=== PATIENT | female | born 1965 | race Hispanic/Latino ===

== ENCOUNTER 2016-10-22 19:25 | Emergency (ER) | payer OTHER ==
[2016-10-22 20:10] VITALS: BP 149/99
[2016-10-22] MEDS ORDERED: TORADOL IM ONE (21:40)
--- NOTE | 2016-10-22 21:40 | Emergency Department Report ---
HPI - General Chief Complaint: Upper Respiratory Infection Time Seen by Provider: 10/22/16 21:31 - HPI HPI: atient here complaining of sore throat, cough and headache since Monday. She said that she's been having cough and stuffy nose about 1 week now but it's been getting worst over the last 3 days. Fever or chills. Denies any difficulty swallowing or drooling. Denies any nausea vomiting. Throat pain is 8 out of 10 and she says she took Motrin and it helped a little bit. Described pain as being sore. Denies any chest pain or shortness of breath. ED Past Medical Hx - Past Medical History Previous Medical History?: Yes Hx Hypertension: Yes Hx Diabetes: Yes Additional medical history: cdiff - Surgical History Past Surgical History?: Yes Additional Surgical History: hysterectomy - Family History Family history: no significant - Social History Smoking Status: Never Smoker Substance Use Type: None - Medications Home Medications: Home Medications Medication Instructions Recorded Confirmed Last Taken Type Carvedilol [Coreg] 25 mg PO DAILY 06/24/13 04/02/15 04/02/15 History Glimepiride [Amaryl] 8 mg PO QAM 06/24/13 04/02/15 04/02/15 History Sitagliptin Phos/Metformin HCl 1 each PO DAILY 06/24/13 04/02/15 04/02/15 History [Janumet 50-1,000 mg] Acetaminophen/Codeine 1 tab PO Q6H PRN #5 tab 04/01/15 04/02/15 04/02/15 Rx [Acetaminophen-Codeine #3 TAB] Azithromycin 500 mg PO DAILY #3 tablet 04/01/15 04/02/15 04/02/15 Rx Insulin Glargine [Lantus VIAL] 40 units SQ QHS 04/02/15 04/02/15 04/01/15 History Losartan/Hydrochlorothiazide 1 each PO DAILY 04/02/15 04/02/15 Unknown History [Hyzaar 50-12.5 TAB] Zolpidem Tartrate [Ambien] 10 mg PO QHS 04/02/15 04/02/15 Unknown History Acetaminophen/Codeine 1 tab PO Q6H PRN #12 tab 10/22/16 Unknown Rx [Acetaminophen-Codeine #3 TAB] Azithromycin [Zithromax] 250 mg PO QDAY #6 tablet 10/22/16 Unknown Rx Cetirizine HCl [ZyrTEC] 10 mg PO QDAY #30 capsule 10/22/16 Unknown Rx Fluticasone [Flonase] 1 spray NS QDAY #1 bottle 10/22/16 Unknown Rx predniSONE [Deltasone] 20 mg PO QDAY #3 tab 10/22/16 Unknown Rx ED Review of Systems ROS: Stated complaint: SOB,WHEEZING, ASTHMA Other details as noted in HPI Comment: All other systems reviewed and negative Constitutional: denies: chills, fever Eyes: denies: eye pain, eye discharge ENT: throat pain, congestion. denies: ear pain Respiratory: cough. denies: shortness of breath, SOB with exertion, SOB at rest , stridor, wheezing Cardiovascular: denies: chest pain, palpitations, edema, syncope Gastrointestinal: denies: abdominal pain, nausea, vomiting Musculoskeletal: denies: back pain, arthralgia Skin: denies: rash Neurological: denies: headache, weakness, numbness, paresthesias, confusion, abnormal gait, vertigo Physical Exam - Physical Exam Vital Signs: Vital Signs 10/22/16 10/22/16 20:08 21:38 Temperature 98.1 F Pulse Rate 113 H 92 H Respiratory 20 Rate Blood Pressure 149/99 O2 Sat by Pulse 99 100 Oximetry General: This is a 51-year-old female nourished well-developed in no acute distress. Physical Exam: Head: Normocephalic atraumatic Mouth: Moist, no pharyngeal exudate or erythema. Uvula is midline and oral airway is patent. No gingival enlargement or dental tenderness. No facial swelling. No peritonsillar abscesses. Neck: Supple, no C-spine tenderness, no tracheal deviation. Nontender to palpate. no adenopathy Ears: Bilateral TMs congested without erythema .bilateral EAC without any redness swelling or drainage Eyes: Bilateral pupils equal and reactive to light, bilateral EOM intact. Bilateral sclera and conjunctiva without injection. Normal accommodation Nose: Mucosa moist, positive congestion and erythema. Positive clear drainage. maxillary sinus tender to palpate. Lungs: clear to auscultate bilaterally no rhonchi wheezes or rales. Normal work of breathing extremity; No CCE. +2 pulses. No neurovascular compromise Cardiovascular: S1-S2, regular rate rhythm. No murmurs. Skin: clean Dry and intact no rash no lesions Psych: Normal mood and behavior ED Course Vital Signs 10/22/16 10/22/16 20:08 21:38 Temperature 98.1 F Pulse Rate 113 H 92 H Respiratory 20 Rate Blood Pressure 149/99 O2 Sat by Pulse 99 100 Oximetry - Reevaluation(s) Reevaluation #1: And stable throughout ED course. SHe received Toradol 60 mg IM pain 10/22/16 23:45 10/22/16 23:45 ED Medical Decision Making - Medical Decision Making ED course: I discussed the patient wishes sinus infection and I discussed treatment plan with her. I instructed her that she will need to follow-up with her primary care physician in 3-5 days for further evaluation. Patient was given Toradol 60 mg IM and emergency room and she was relief of sore throat. Strep test negative and for communicated with the patient. She was understanding of discharge instruction and discharged home with prescription for Zyrtec, Z-Matthew, Flonase and prednisone. Patient is a diabetic give her prednisone for 3 days. Instructed her that she needs to check her blood sugar more frequently well and prednisone. Critical care attestation.: If time is entered above; I have spent that time in minutes in the direct care of this critically ill patient, excluding procedure time. ED Disposition Clinical Impression: Sinusitis, acute, maxillary Qualifiers: Recurrence: not specified as recurrent Qualified Code(s): J01.00 - Acute maxillary sinusitis, unspecified Acute pharyngitis Qualifiers: Pharyngitis/tonsillitis etiology: unspecified etiology Qualified Code(s): J02.9 - Acute pharyngitis, unspecified Disposition: DISCHARGED TO HOME OR SELFCARE Is pt being admited?: No Does the pt Need Aspirin: No Condition: Stable Instructions: Sinusitis (ED), Pharyngitis (ED) Additional Instructions: Please flush your with saline nasal spray. Follow up with primary care physician in 3-5 days. Prednisone can cause increase in her blood sugar so please check your blood sugar while on prednisone. Prescriptions: Acetaminophen/Codeine [Acetaminophen-Codeine #3 TAB] 1 tab PO Q6H PRN #12 tab PRN Reason: Pain predniSONE [Deltasone] 20 mg PO QDAY #3 tab Fluticasone [Flonase] 1 spray NS QDAY #1 bottle Azithromycin [Zithromax] 250 mg PO QDAY #6 tablet Cetirizine HCl [ZyrTEC] 10 mg PO QDAY #30 capsule Referrals: PRIMARY CARE, [Primary Care Provider] - 3-5 Days Forms: Accompanied Note, Work/School Release Form(ED)
== END 2016-10-23 00:05 | disposition home or self-care (01) ==
LOC: ED 19:25
DX: J01.00 Acute maxillary sinusitis, unspecified (principal); J02.9 Acute pharyngitis, unspecified; I10 Essential (primary) hypertension; E11.9 Type 2 diabetes mellitus without complications; Z79.4 Long term (current) use of insulin
CPT/HCPCS: 87116; 87430; 96372; 99282; J1885

== ENCOUNTER 2018-11-08 05:03 | Inpatient (IN) | payer OTHER ==
[2018-11-08] MEDS ORDERED: NACL 0.9% 1000 ML 1,000 ML IV ONE (05:21)
[2018-11-08 05:46] LABS: Basophils # (Auto) 0.1 K/mm3 (0.0-0.1); Basophils % (Auto) 0.8 % (0.0-1.8); Eosinophils # (Auto) 0.4 K/mm3 (0.0-0.4); Eosinophils % (Auto) 4.9 % (0.0-4.3); Hemoglobin 13.3 gm/dl (10.1-14.3); Lymphocytes # (Auto) 2.3 K/mm3 (1.2-5.4); Lymphocytes % (Auto) 29.4 % (13.4-35.0); Mean Corpuscular HGB Conc 34 % (30-34); Mean Corpuscular Volume 90 fl (79-97); Monocytes # (Auto) 0.4 K/mm3 (0.0-0.8); Monocytes % (Auto) 4.5 % (0.0-7.3); Platelet Count 273 K/mm3 (140-440); Red Blood Count 4.31 M/mm3 (3.65-5.03); Red Cell Distribution Width 13.1 % (13.2-15.2)
[2018-11-08 06:03] LABS: BUN/Creatinine Ratio 10; Blood Urea Nitrogen 9 mg/dL (7-17); Calcium 9.1 mg/dL (8.4-10.2); Hemolysis Index 26
[2018-11-08] MEDS ORDERED: D50W (25GM) Syringe IV PRN (06:29)
--- NOTE | 2018-11-08 06:30 | Emergency Department Report ---
ED Abdominal Pain HPI - General Chief Complaint: Hyperglycemia Stated Complaint: HIGH BLOOD SUGAR Time Seen by Provider: 11/08/18 06:12 Source: patient, EMS Mode of arrival: Stretcher Limitations: No Limitations - History of Present Illness Initial Comments: Patient is a 53-year-old female that presents emergency room with complaints of left lower abdominal pain and elevated blood sugar. Patient states her abdominal pain started about 3 days ago and is worsening. Patient states her abdominal pain is about a 5-6 out of 10. Patient states it is not radiating patient states the pain is a stabbing sensation. Patient states the pain is worse with palpation over. She states the pain is better with rest. Patient states that her blood sugars but however since changing her insulin. Patient denies vomiting. Patient complains of nausea. Patient denies fever and chills. Patient denies dizziness. Patient denies blurry vision. Patient denies chest pain shortness of breath. MD Complaint: abdominal pain -: Sudden Location: LLQ Radiation: none Migration to: no migration Severity scale (0 -10): 5 Quality: stabbing Consistency: constant Improves With: rest Worsens With: movement Associated Symptoms: nausea. denies: vomiting, diarrhea, fever, chills, constipation, dysuria, hematemesis, hematochezia, melena, hematuria, anorexia, syncope - Related Data LMP (females 10-50): unknown Home Medications Medication Instructions Recorded Confirmed Last Taken Carvedilol [Coreg] 25 mg PO DAILY 06/24/13 11/08/18 04/02/15 Glimepiride [Amaryl] 8 mg PO QAM 06/24/13 11/08/18 04/02/15 Sitagliptin Phos/Metformin HCl 1 each PO DAILY 06/24/13 11/08/18 04/02/15 [Janumet 50-1,000 mg] Insulin Glargine [Lantus VIAL] 40 units SQ QHS 04/02/15 11/08/18 04/01/15 Losartan/Hydrochlorothiazide 1 each PO DAILY 04/02/15 11/08/18 Unknown [Hyzaar 50-12.5 TAB] Zolpidem Tartrate [Ambien] 10 mg PO QHS 04/02/15 11/08/18 Unknown Previous Rx's Medication Instructions Recorded Last Taken Type Acetaminophen/Codeine [Tylenol 1 tab PO Q6H PRN #5 tab 04/01/15 04/02/15 Rx /Codeine # 3 tab] Allergies Allergy/AdvReac Type Severity Reaction Status Date / Time Penicillins Allergy Rash Verified 04/02/15 11:54 ED Review of Systems ROS: Stated complaint: HIGH BLOOD SUGAR Other details as noted in HPI Constitutional: denies: chills, fever Eyes: denies: eye pain, eye discharge, vision change ENT: denies: ear pain, throat pain Respiratory: denies: cough, shortness of breath, wheezing Cardiovascular: denies: chest pain, palpitations Endocrine: no symptoms reported Gastrointestinal: abdominal pain, nausea. denies: vomiting, diarrhea, constipation, hematemesis, melena, hematochezia Genitourinary: denies: urgency, dysuria, discharge Musculoskeletal: denies: back pain, joint swelling, arthralgia Skin: denies: rash, lesions Neurological: denies: headache, weakness, paresthesias Psychiatric: denies: anxiety, depression Hematological/Lymphatic: denies: easy bleeding, easy bruising ED Past Medical Hx - Past Medical History Previous Medical History?: Yes Hx Hypertension: Yes Hx Diabetes: Yes Additional medical history: cdiff - Surgical History Past Surgical History?: Yes Additional Surgical History: hysterectomy - Family History Family history: no significant - Social History Smoking Status: Never Smoker Substance Use Type: None - Medications Home Medications: Home Medications Medication Instructions Recorded Confirmed Last Taken Type Carvedilol [Coreg] 25 mg PO DAILY 06/24/13 11/08/18 04/02/15 History Glimepiride [Amaryl] 8 mg PO QAM 06/24/13 11/08/18 04/02/15 History Sitagliptin Phos/Metformin HCl 1 each PO DAILY 06/24/13 11/08/18 04/02/15 History [Janumet 50-1,000 mg] Acetaminophen/Codeine [Tylenol 1 tab PO Q6H PRN #5 tab 04/01/15 11/08/18 04/02/15 Rx /Codeine # 3 tab] Insulin Glargine [Lantus VIAL] 40 units SQ QHS 04/02/15 11/08/18 04/01/15 History Losartan/Hydrochlorothiazide 1 each PO DAILY 04/02/15 11/08/18 Unknown History [Hyzaar 50-12.5 TAB] Zolpidem Tartrate [Ambien] 10 mg PO QHS 04/02/15 11/08/18 Unknown History ED Physical Exam - General Limitations: No Limitations General appearance: alert, in no apparent distress - Head Head exam: Present: atraumatic, normocephalic - Eye Eye exam: Present: normal appearance - ENT ENT exam: Present: mucous membranes dry - Neck Neck exam: Present: normal inspection - Respiratory Respiratory exam: Present: normal lung sounds bilaterally. Absent: respiratory distress - Cardiovascular Cardiovascular Exam: Present: regular rate, normal rhythm. Absent: systolic murmur, diastolic murmur, rubs, gallop - GI/Abdominal GI/Abdominal exam: Present: soft, normal bowel sounds - Extremities Exam Extremities exam: Present: normal inspection - Back Exam Back exam: Present: normal inspection - Neurological Exam Neurological exam: Present: alert, oriented X3 - Psychiatric Psychiatric exam: Present: normal affect, normal mood - Skin Skin exam: Present: warm, dry, intact, normal color. Absent: rash ED Course Vital Signs 11/08/18 11/08/18 11/08/18 05:07 05:15 05:30 Temperature 98.2 F Pulse Rate 82 91 H 87 Respiratory 18 14 20 Rate Blood Pressure 126/85 118/94 131/85 O2 Sat by Pulse 99 98 98 Oximetry 11/08/18 11/08/18 11/08/18 05:45 06:00 06:15 Temperature Pulse Rate 74 83 85 Respiratory 12 24 20 Rate Blood Pressure 161/104 154/93 155/99 O2 Sat by Pulse 99 99 100 Oximetry 11/08/18 11/08/18 11/08/18 06:30 06:45 07:11 Temperature Pulse Rate 85 81 Respiratory 20 13 Rate Blood Pressure 166/94 166/94 166/94 O2 Sat by Pulse 98 98 Oximetry 11/08/18 11/08/18 11/08/18 07:21 07:31 07:41 Temperature Pulse Rate Respiratory Rate Blood Pressure 166/94 166/94 166/94 O2 Sat by Pulse 98 98 99 Oximetry 11/08/18 11/08/18 11/08/18 07:51 08:01 08:11 Temperature Pulse Rate Respiratory Rate Blood Pressure 166/94 166/94 166/94 O2 Sat by Pulse 99 98 98 Oximetry 11/08/18 11/08/18 11/08/18 08:21 08:31 08:41 Temperature Pulse Rate Respiratory Rate Blood Pressure 166/94 166/94 166/94 O2 Sat by Pulse 98 99 100 Oximetry 11/08/18 11/08/18 11/08/18 08:51 09:01 09:11 Temperature Pulse Rate Respiratory Rate Blood Pressure 166/94 166/94 166/94 O2 Sat by Pulse 99 100 98 Oximetry 11/08/18 11/08/18 11/08/18 09:21 09:31 09:41 Temperature Pulse Rate 99 H 113 H Respiratory 18 11 L Rate Blood Pressure 166/94 166/94 166/94 O2 Sat by Pulse 98 100 Oximetry 11/08/18 11/08/18 11/08/18 09:51 10:01 10:11 Temperature Pulse Rate 105 H 119 H 110 H Respiratory 17 14 19 Rate Blood Pressure 166/94 166/94 166/94 O2 Sat by Pulse 99 99 98 Oximetry - Reevaluation(s) Reevaluation #1: Lab review. Discussed all results with patient. Initial evaluation done. Patient appears to be in DKA. She was started on insulin drip. We'll do a CT scan of the abdomen. 11/08/18 06:12 Reevaluation #2: Skull and all results with patient. Patient's voiced understanding of results. Patient admitted to the ICU. Hospitalist to admit patient. 11/08/18 08:37 - Consultations Consultation #1: Hospitalist consultation for admission. Hospitalist to admit patient. Bridge orders placed 11/08/18 08:37 Consultation #2: Transport Technician consult placed 11/08/18 08:37 ED Medical Decision Making - Lab Data Result diagrams: 11/08/18 05:35 11/08/18 07:19 - Radiology Data Radiology results: report reviewed FINAL REPORT EXAM: CT ABDOMEN PELVIS W CON HISTORY: abd pain TECHNIQUE: Routine axial imaging was obtained of the abdomen and pelvis following the intravenous injection of 100 cc of Omnipaque 300. Delayed imaging was obtained through the kidneys ureters and bladder. Sagittal and coronal reconstructions were reviewed. FINDINGS: The lung bases are negative for infiltrates or effusions. The liver, gallbladder, biliary tree, pancreas, spleen, and adrenal glands appear normal. The kidneys enhance normally. There is no evidence of hydronephrosis. The abdominal aorta is normal in caliber. The portal vein enhances normally. There is a moderate amount retained feces noted in the colon. There is a large amount in the cecum. There is mild distention of multiple ileal loops without wall thickening. There is several mildly distended ileal loops. The appendix appears normal. There is no evidence of free fluid or adenopathy. In the pelvis the uterus has been removed. The bladder appears no rmal. The skeletal structures do not show any acute changes. IMPRESSION: Nonspecific mildly distended fluid-filled loops of ileum with minimal distension of several jejunal loops. The findings may be on the basis of a viral enteritis/nonspecific ileus. Hysterectomy. Normal appendix. Moderate amount retained feces in the colon. - Medical Decision Making She is 53-year-old female that presents to emergency room with complaints of left lower quadrant abdominal pain. Patient found to have gastroenteritis and DKA. Patient admitted to the hospitalist service. Patient given insulin drip. Patient's blood glucose responded well patient started on D5 half-normal saline with [address] showed gastroenteritis. - Differential Diagnosis abdominal pain. Gastritis. Diverticulitis. Critical Care Time: Yes Critical care attestation.: If time is entered above; I have spent that time in minutes in the direct care of this critically ill patient, excluding procedure time. Critical Care Time: 45 minutes ED Disposition Clinical Impression: High blood sugar, Metabolic acidosis, Gastroenteritis Abdominal pain Qualifiers: Abdominal location: left lower quadrant Qualified Code(s): R10.32 - Left lower quadrant pain DKA (diabetic ketoacidoses) Qualifiers: Diabetes mellitus type: type 2 Diabetes mellitus complication detail: without coma Qualified Code(s): E11.10 - Type 2 diabetes mellitus with ketoacidosis without coma Disposition: 09 OP ADMIT IP TO THIS HOSP Is pt being admited?: Yes Does the pt Need Aspirin: No Condition: Critical Time of Disposition: 08:38
[2018-11-08 06:45] LABS: Bilirubin,Urine NEG (Negative); Blood,Urine NEG (Negative); Color,Urine Straw (Yellow); Mucus,Urine FEW /HPF; Protein,Urine <15 mg/dL mg/dL (Negative); Urobilinogen,Urine < 2.0 mg/dL (<2.0)
[2018-11-08] MEDS ORDERED: DILAUDID ONE (06:50)
[2018-11-08] MEDS ORDERED: DILAUDID IV ONE (06:56)
[2018-11-08] MEDS ORDERED: HumuLIN R 100 UNITS in NACL 0.9% 99 ML IV SCH (07:00)
--- NOTE | 2018-11-08 07:34 | Cat Scan Report ---
FINAL REPORT EXAM: CT ABDOMEN PELVIS W CON HISTORY: abd pain TECHNIQUE: Routine axial imaging was obtained of the abdomen and pelvis following the intravenous in jection of 100 cc of Omnipaque 300. Delayed imaging was obtained through the kidneys ureters and blad ross. Sagittal and coronal reconstructions were reviewed. FINDINGS: The lung bases are negative for infiltrates or effusions. The liver, gallbladder, biliary tree, pancreas, spleen, and adrenal glands appear normal. The kidneys enhance normally. There is no evidence of hydronephrosis. The abdominal aorta is normal in caliber. The portal vein enhances normally. There is a moderate amount retained feces noted in the colon. There is a large amount in the cecum. T here is mild distention of multiple ileal loops without wall thickening. There is several mildly dist ended ileal loops. The appendix appears normal. There is no evidence of free fluid or adenopathy. In the pelvis the uterus has been removed. The bladder appears normal. The skeletal structures do not sh ow any acute changes. IMPRESSION: Nonspecific mildly distended fluid-filled loops of ileum with minimal distension of several jejunal l oops. The findings may be on the basis of a viral enteritis/nonspecific ileus. Hysterectomy. Normal appendix. Moderate amount retained feces in the colon.
[2018-11-08 07:49] LABS: BUN/Creatinine Ratio 10; Blood Urea Nitrogen 8 mg/dL (7-17); Calcium 8.8 mg/dL (8.4-10.2); Hemolysis Index 9
[2018-11-08] MEDS ORDERED: BENADRYL IV ONE (08:12)
[2018-11-08] MEDS ORDERED: D5W/0.45% NACL/KCL 20 MEQ 20 MEQ/1,000 ML BAG IV SCH (09:00)
--- NOTE | 2018-11-08 09:18 | History and Physical Report ---
History of Present Illness Date of examination: 11/08/18 Date of admission: 11/08/18 Chief complaint: Abdominal pain, nausea, vomiting, elevated blood glucose History of present illness: Patient is 53-year-old with diabetes. She presents with abdominal pain and nausea. Abdominal pain is 6 out of 10,mid abdomen non-radiating. Pain is a sharp pain. She also complains of nausea with no vomiting. She was evaluated in Emergency departments. labs drawn in Emergency department showed a glucose of 432. She was diagnosed with uncontrolled diabetes mellitus type 2 with hyperglycemia, and was started on Insulin drip. Will admit for further management. Past History Past Medical History: diabetes Past Surgical History: hysterectomy Social history: full code. denies: smoking, alcohol abuse Family history: no significant family history Medications and Allergies Allergies Allergy/AdvReac Type Severity Reaction Status Date / Time Penicillins Allergy Rash Verified 04/02/15 11:54 Home Medications Medication Instructions Recorded Confirmed Last Taken Type Carvedilol [Coreg] 25 mg PO DAILY 06/24/13 11/08/18 04/02/15 History Glimepiride [Amaryl] 8 mg PO QAM 06/24/13 11/08/18 04/02/15 History Sitagliptin Phos/Metformin HCl 1 each PO DAILY 06/24/13 11/08/18 04/02/15 History [Janumet 50-1,000 mg] Acetaminophen/Codeine [Tylenol 1 tab PO Q6H PRN #5 tab 04/01/15 11/08/18 04/02/15 Rx /Codeine # 3 tab] Losartan/Hydrochlorothiazide 1 each PO DAILY 04/02/15 11/08/18 Unknown History [Hyzaar 50-12.5 TAB] Famotidine [Pepcid] 20 mg PO BID 5 Days tablet 11/09/18 Unknown Rx Insulin Glargine,Hum.rec.anlog 45 units SQ QHS #1 vial 11/09/18 Unknown Rx [Lantus] diphenhydrAMINE [Benadryl CAP] 25 mg PO Q8HR #10 capsule 11/09/18 Unknown Rx predniSONE [Deltasone] 20 mg PO QDAY 5 Days tab 11/09/18 Unknown Rx Active Meds: Active Medications Dextrose (D50w (25gm) Syringe) 0 ml IV PRN PRN PRN Reason: Hypoglycemia Insulin Human Regular 100 (units/ Sodium Chloride) 100 mls @ 1 mls/hr IV TITR SANYA; Protocol Last Admin: 11/08/18 08:18 Dose: 5 units/hr, 5 mls/hr Documented by: Potassium Chloride/Dextrose/Sod Cl (D5w/0.45% Nacl/Kcl 20 Meq) 20 meq in 1,000 mls @ 125 mls/hr IV DIRECT SANYA Last Admin: 11/08/18 08:43 Dose: 125 mls/hr Documented by: Review of Systems All systems: negative (no fever, no cough, no urinary symptoms. All other systems reviewed and are negative.) Exam - Physical Exam Narrative exam: GEN: Not in acute distress, lying in bed HEENT: Normocephalic, atraumatic, Neck: supple, No JVD Lungs: Clear to auscultation bilaterally, no wheeze Heart:S1 and S2 regular, no murmurs, rubs or gallop, Abd:soft, non tender, non distended, normal bowel sounds Ext: No edema, no clubbing or cyanosis Neuro: Awake,alert, oriented x 3, No focal signs - Constitutional Vitals: Temp Pulse Resp BP Pulse Ox 98.2 F 81 13 166/94 98 11/08/18 05:07 11/08/18 06:45 11/08/18 06:45 11/08/18 06:45 11/08/18 06:30 Results - Labs CBC & Chem 7: 11/08/18 05:35 11/09/18 06:42 Labs: Abnormal lab results 11/08/18 11/08/18 11/08/18 Range/Units 05:11 05:35 05:35 RDW 13.1 L (13.2-15.2) % Eos % (Auto) 4.9 H (0.0-4.3) % VBG pH (7.320-7.420) Sodium 136 L (137-145) mmol/L Chloride 97.9 L (98-107) mmol/L Carbon Dioxide 21 L (22-30) mmol/L Glucose 433 H (65-100) mg/dL POC Glucose 356 H (70-105) Hemoglobin A1c (4-6) % 11/08/18 11/08/18 11/08/18 Range/Units 05:35 05:35 06:27 RDW (13.2-15.2) % Eos % (Auto) (0.0-4.3) % VBG pH 7.205 L (7.320-7.420) Sodium (137-145) mmol/L Chloride (98-107) mmol/L Carbon Dioxide (22-30) mmol/L Glucose (65-100) mg/dL POC Glucose 322 H (70-105) Hemoglobin A1c 8.3 H (4-6) % 11/08/18 11/08/18 Range/Units 07:19 07:59 RDW (13.2-15.2) % Eos % (Auto) (0.0-4.3) % VBG pH (7.320-7.420) Sodium 135 L (137-145) mmol/L Chloride (98-107) mmol/L Carbon Dioxide 21 L (22-30) mmol/L Glucose 312 H (65-100) mg/dL POC Glucose 265 H (70-105) Hemoglobin A1c (4-6) % Assessment and Plan Diabetes mellitus type 2, uncontrollled, with hyperglycemia Admit Stop Insulin drip Give humalog qac Continue lantus 40 units qhs Hyponatremia Start iv fluids Full code status
[2018-11-08] MEDS ORDERED: ZOFRAN IV PRN (09:19)
[2018-11-08] MEDS ORDERED: SODIUM CHLORIDE FLUSH SYRINGE 10 ML IV PRN (09:19)
[2018-11-08] MEDS ORDERED: NACL 0.9% 1000 ML 1,000 ML IV SCH (10:00)
[2018-11-08] MEDS ORDERED: SITAGLIPTIN PHOS PO SCH (10:15)
[2018-11-08] MEDS ORDERED: METFORMIN HCL PO SCH (10:15)
[2018-11-08] MEDS ORDERED: TYLENOL PO PRN (10:30)
[2018-11-08] MEDS: COREG PO SCH (10:47)
[2018-11-08] MEDS: SODIUM CHLORIDE FLUSH SYRINGE 10 ML IV SCH ×2 (10:48→22:12)
[2018-11-08] MEDS ORDERED: LOSARTAN PO SCH (11:00)
[2018-11-08] MEDS ORDERED: HYDROCHLOROTHIAZIDE PO SCH (11:00)
[2018-11-08] MEDS: MORPHINE IV PRN ×4 (11:06→22:11)
[2018-11-08] MEDS: HCTZ PO SCH (12:00)
[2018-11-08] MEDS: AMARYL PO SCH (12:00)
[2018-11-08] MEDS ORDERED: COZAAR PO SCH (12:00)
[2018-11-08] MEDS: HumaLOG SUB-Q SCH ×2 (12:43→16:59)
[2018-11-08] MEDS: ZOFRAN IV PRN (16:10)
[2018-11-08 17:46] LABS: BUN/Creatinine Ratio 6; Blood Urea Nitrogen 5 mg/dL (7-17); Calcium 9.2 mg/dL (8.4-10.2); Hemolysis Index 19
[2018-11-08] MEDS ORDERED: AMBIEN PO SCH (22:00)
[2018-11-08] MEDS ORDERED: LANTUS SUB-Q SCH (22:00)
[2018-11-08 23:23] LABS: BUN/Creatinine Ratio 6; Blood Urea Nitrogen 5 mg/dL (7-17); Calcium 9.3 mg/dL (8.4-10.2); Hemolysis Index 16
[2018-11-08] MEDS ORDERED: APRESOLINE IV PRN (23:40)
[2018-11-09] MEDS: ZOFRAN IV PRN (00:49)
[2018-11-09] MEDS: MORPHINE IV PRN ×3 (04:04→13:19)
[2018-11-09 07:35] LABS: Calcium 8.4 mg/dL (8.4-10.2)
[2018-11-09] MEDS: AMARYL PO SCH (08:55)
[2018-11-09] MEDS: HumaLOG SUB-Q SCH ×2 (08:59→11:30)
[2018-11-09] MEDS: COREG PO SCH (10:00)
[2018-11-09] MEDS ORDERED: TRADJENTA PO SCH (10:00)
[2018-11-09] MEDS ORDERED: GLUCOPHAGE PO SCH (10:00)
[2018-11-09] MEDS: SODIUM CHLORIDE FLUSH SYRINGE 10 ML IV SCH (10:09)
[2018-11-09] MEDS: HCTZ PO SCH (10:10)
[2018-11-09] MEDS ORDERED: BENADRYL IV ONE (11:00)
[2018-11-09] MEDS ORDERED: PEPCID IV SCH (12:00)
[2018-11-09] MEDS ORDERED: SOLU-Medrol IV SCH (12:00)
--- NOTE | 2018-11-09 12:40 | Discharge Summary ---
Providers - Providers Date of Admission: 11/08/18 08:34 Date of discharge: 11/09/18 Attending physician: KASEY VEGA Primary care physician: JOHN GREEN Hospitalization Condition: Fair Hospital course: Patient is 53-year-old with diabetes. She presented with abdominal pain and nausea. She was evaluated in Emergency departments. labs drawn in Emergency department showed a glucose of 432. She was diagnosed with uncontrolled diabetes mellitus type 2 with hyperglycemia, and was started on Insulin drip. Blood glucose improved so her insulin drip was discontinued in the emergency room and she was admitted. She was put on Lantus and Humalog. By the following day her glucose was normalized so she was discharged home with a glucose of 108. Disposition: TO HOME OR SELFCARE - Discharge Diagnoses (1) Diabetes mellitus type 2 in nonobese Status: Acute (2) Hyperglycemia Status: Acute (3) Hyponatremia Status: Acute Core Measure Documentation - Palliative Care Palliative Care/ Comfort Measures: Not Applicable - Core Measures Any of the following diagnoses?: none Exam - Constitutional Vitals: Temp Pulse Resp BP Pulse Ox 98.0 F 82 16 103/66 98 11/09/18 05:24 11/09/18 05:24 11/09/18 05:24 11/09/18 10:02 11/09/18 05:24 Plan Activity: no restrictions Diet: low fat, low cholesterol, diabetic Additional Instructions: 1.Follow up with PCP in 1 week. 2.Resume Janumet on 11/11/18 because of recent contrast. Follow up with: JOHN GREEN MD [Primary Care Provider] - 7 Days Forms: Work/School Release Form Prescriptions: diphenhydrAMINE [Benadryl CAP] 25 mg PO Q8HR #10 capsule Famotidine [Pepcid] 20 mg PO BID 5 Days tablet Insulin Glargine,Hum.rec.anlog [Lantus] 45 units SQ QHS #1 vial predniSONE [Deltasone] 20 mg PO QDAY 5 Days tab
[2018-11-11 11:29] VITALS: BP 101/65
== END 2018-11-09 16:54 | disposition home or self-care (01) | DRG 391 ==
LOC: ED 05:03 → 3A 08:34
PROVIDERS: ADMIT Internal Medicine; ATTEND Internal Medicine
DX: K52.9 Noninfective gastroenteritis and colitis, unspecified (principal); E11.10 Type 2 diabetes mellitus with ketoacidosis without coma; I10 Essential (primary) hypertension; Z79.4 Long term (current) use of insulin; Z88.0 Allergy status to penicillin; Z79.899 Other long term (current) drug therapy; Z79.810 Long term (current) use of selective estrogen receptor modulators (SERMs)
CPT/HCPCS: 36415; 74177; 80048; 81001; 82805; 82962; 83036; 83735; 84100; 85025; G0378; J0360; J1170; J1200; J1815; J2270; J2405; J2930; J7030; Q9967

== ENCOUNTER 2019-09-20 21:15 | Emergency (ER) | payer SELFPAY ==
[2019-09-20 23:36] LABS: Basophils # (Auto) 0.1 K/mm3 (0.0-0.1); Basophils % (Auto) 0.8 % (0.0-1.8); Eosinophils # (Auto) 0.5 K/mm3 (0.0-0.4); Eosinophils % (Auto) 5.2 % (0.0-4.3); Hematocrit 38.5 % (30.3-42.9); Hemoglobin 13.1 gm/dl (10.1-14.3); Lymphocytes # (Auto) 1.5 K/mm3 (1.2-5.4); Lymphocytes % (Auto) 16.3 % (13.4-35.0); Mean Corpuscular HGB Conc 34 % (30-34); Mean Corpuscular Volume 91 fl (79-97); Monocytes # (Auto) 0.4 K/mm3 (0.0-0.8); Monocytes % (Auto) 3.9 % (0.0-7.3); Platelet Count 214 K/mm3 (140-440); Red Blood Count 4.25 M/mm3 (3.65-5.03); Red Cell Distribution Width 14.3 % (13.2-15.2)
[2019-09-20 23:59] LABS: Bacteria,Urine 1+ /HPF (Negative); Bilirubin,Urine NEG (Negative); Blood,Urine NEG (Negative); Color,Urine Straw (Yellow); Protein,Urine <15 mg/dL mg/dL (Negative); Urobilinogen,Urine < 2.0 mg/dL (<2.0)
[2019-09-21 00:01] LABS: BUN/Creatinine Ratio 10; Blood Urea Nitrogen 8 mg/dL (7-17); Calcium 10.7 mg/dL (8.4-10.2); Hemolysis Index 10
[2019-09-21] MEDS ORDERED: SODIUM CHLORIDE 0.9% 1000 ML 1,000 ML IV ONE ×2 (00:31→01:19)
[2019-09-21] MEDS ORDERED: INSULIN REGULAR, HUMAN 100 UNITS/1 ML IV ONE ×2 (00:31→02:55)
[2019-09-21 02:13] LABS: Alanine Aminotransferase 22 units/L (7-56); Albumin 3.8 g/dL (3.9-5)
[2019-09-21 02:15] LABS: Bilirubin,Direct < 0.2 mg/dL (0-0.2)
--- NOTE | 2019-09-21 02:15 | Cat Scan Report ---
CT of the abdomen and pelvis without contrast INDICATION: Nausea and vomiting COMPARISON: 11/08/2018 FINDINGS: Small right lung nodules are unchanged. There is calcified right lower lobe granuloma as we ll. Liver, spleen, pancreas, adrenal glands and left kidney are all grossly normal. Small stones are seen in the right lower pole without obstruction. Gallbladder is contracted. No biliary tree dilation . No fluid or adenopathy upper abdomen. There are trace pleural effusions. CT of the pelvis shows evidence of hysterectomy. There is large amount of stool in rectum and sigmoid colon. Appendix is seen and is normal. No pelvic fluid or adenopathy. No diverticulosis or diverticu litis. No bowel obstruction is seen. No ureteral stones are seen. No stone fragments seen in the blad ross. IMPRESSION: No acute abnormality. Automated exposure control was utilized to diminish radiation dose. Signer Name: Jaun De Leon MD Signed: 09/21/2019 2:10 AM Workstation Name: [id number]
[2019-09-21] MEDS ORDERED: ACETAMINOPHEN 325 MG TAB PO ONE (02:53)
[2019-09-21] MEDS ORDERED: SODIUM CHLORIDE 0.9% 1000 ML 500 ML IV ONE (02:54)
--- NOTE | 2019-09-21 04:32 | Emergency Department Report ---
ED Abdominal Pain HPI - General Chief Complaint: Hyperglycemia Stated Complaint: HIGH GLUCOSE; N/V Time Seen by Provider: 09/21/19 00:30 Source: patient Mode of arrival: Ambulatory Limitations: No Limitations - History of Present Illness MD Complaint: abdominal pain -: Gradual, days(s) (1) Location: RLQ Radiation: none Migration to: no migration Severity scale (0 -10): 1 Quality: aching Consistency: intermittent Improves With: nothing Worsens With: nothing Associated Symptoms: other (Hyperglycemia). denies: nausea, vomiting, diarrhea, chills, constipation, dysuria, hematemesis, hematochezia, melena, hematuria, anorexia, syncope - Related Data Home Medications Medication Instructions Recorded Confirmed Last Taken Glimepiride [Amaryl] 8 mg PO QAM 06/24/13 11/08/18 04/02/15 Sitagliptin Phos/Metformin HCl 1 each PO DAILY 06/24/13 11/08/18 04/02/15 [Janumet 50-1,000 mg] carvediloL [Coreg] 25 mg PO DAILY 06/24/13 11/08/18 04/02/15 Losartan/Hydrochlorothiazide 1 each PO DAILY 04/02/15 11/08/18 Unknown [Hyzaar 50-12.5 TAB] Previous Rx's Medication Instructions Recorded Last Taken Type Acetaminophen/Codeine [Tylenol 1 tab PO Q6H PRN #5 tab 04/01/15 04/02/15 Rx /Codeine # 3 tab] Famotidine [Pepcid] 20 mg PO BID 5 Days tablet 11/09/18 Unknown Rx Insulin Glargine,Hum.rec.anlog 45 units SQ QHS #1 vial 11/09/18 Unknown Rx [Lantus] diphenhydrAMINE [Benadryl CAP] 25 mg PO Q8HR #10 capsule 11/09/18 Unknown Rx predniSONE [Deltasone] 20 mg PO QDAY 5 Days tab 11/09/18 Unknown Rx Dicyclomine [Bentyl] 10 mg PO QID PRN #12 capsule 09/21/19 Unknown Rx Allergies Allergy/AdvReac Type Severity Reaction Status Date / Time Penicillins Allergy Rash Verified 04/02/15 11:54 ED Review of Systems ROS: Stated complaint: HIGH GLUCOSE; N/V Other details as noted in HPI Other: GENERAL: No weight change, fatigue, fever, chills, or night sweats SKIN: No changes in skin or hair, no itching, no rashes, no jaundice HEAD: No trauma EYES: No blurriness, tearing, itching, acute visual loss, conjunctival discoloration, or scleral icterus EARS: No hearing loss, tinnitus, vertigo, or earache NOSE: No rhinorrhea, stuffiness, sneezing, itching, or epistaxis MOUTH: No bleeding gums, hoarseness, sore throat, or swelling CARDIAC: No new murmur, chest pain, palpitations, dyspnea on exertion, orthopne a, PND, or edema RESPIRATORY: No shortness of breath, wheeze, cough, sputum production, hemoptysis GI: Abdominal pain. No nausea, vomiting, dysphagia, diarrhea, constipation, hematemesis, melena, hematochezia URINARY: No frequency, urgency, polyuria, dysuria, hematuria, or incontinence MUSCULOSKELETAL: No muscle weakness, joint stiffness, decrease in range of motion, redness, swelling NEUROLOGIC: No headache, syncope, loss of sensation, numbness, tingling, tremors, weakness, paralysis, seizures HEMATOLOGIC: No anemia, easy bruising, bleeding, petechiae, or purpura ENDOCRINE: No hot or cold intolerance, sweating, polyuria, polydipsia or, polyphagia no thyroid problems PSYCHIATRIC: No change in mood, no anxiety, no depression ED Past Medical Hx - Past Medical History Previous Medical History?: Yes Hx Hypertension: Yes Hx Diabetes: Yes Additional medical history: cdiff - Surgical History Past Surgical History?: Yes Additional Surgical History: hysterectomy - Social History Smoking Status: Never Smoker Substance Use Type: None - Medications Home Medications: Home Medications Medication Instructions Recorded Confirmed Last Taken Type Glimepiride [Amaryl] 8 mg PO QAM 06/24/13 11/08/18 04/02/15 History Sitagliptin Phos/Metformin HCl 1 each PO DAILY 06/24/13 11/08/18 04/02/15 History [Janumet 50-1,000 mg] carvediloL [Coreg] 25 mg PO DAILY 06/24/13 11/08/18 04/02/15 History Acetaminophen/Codeine [Tylenol 1 tab PO Q6H PRN #5 tab 04/01/15 11/08/1803/10 Rx /Codeine # 3 tab] Losartan/Hydrochlorothiazide 1 each PO DAILY 04/02/15 11/08/18 Unknown History [Hyzaar 50-12.5 TAB] Famotidine [Pepcid] 20 mg PO BID 5 Days tablet 11/09/18 Unknown Rx Insulin Glargine,Hum.rec.anlog 45 units SQ QHS #1 vial 11/09/18 Unknown Rx [Lantus] diphenhydrAMINE [Benadryl CAP] 25 mg PO Q8HR #10 capsule 11/09/18 Unknown Rx predniSONE [Deltasone] 20 mg PO QDAY 5 Days tab 11/09/18 Unknown Rx Dicyclomine [Bentyl] 10 mg PO QID PRN #12 capsule 09/21/19 Unknown Rx ED Physical Exam - General Limitations: No Limitations - Other Other exam information: GENERAL: Patient in no acute distress HEAD: Normocephalic, atraumatic EYES: PERRLA, EOM intact, no scleral icterus, no conjunctival hemorrhage, visual chamberlain and acuity wnl NOSE: No tenderness, discharge, sinus tenderness MOUTH: No erythema, bleeding, exudate HEART: Regular rate and rhythm, no murmur, S1-S2 are auscultated, no edema, pulses are symmetric LUNGS: No respiratory distress. Bilateral breath sounds, No tachypnea, No retractions, No wheezing, rales, rhonchi ABDOMEN: Normal bowel sounds, abdomen soft, no tenderness, no rebound, no guarding, no distention, no masses, no CVA tenderness MUSCULOSKELETAL: Normal joint range of motion, no redness, no swelling, no tenderness NEUROLOGIC: GCS 15, Alert and Oriented x3, Cranial nerves intact, normal sensation, normal strength, no cerebellar deficit, NIHSS 0 SKIN: Skin is warm and dry, no wounds, no rashes ED Course Vital Signs 09/20/19 09/20/19 09/20/19 21:18 22:25 23:57 Temperature 98 F Pulse Rate 125 H Respiratory 14 Rate Blood Pressure 161/103 O2 Sat by Pulse 99 97 Oximetry 09/21/19 09/21/19 09/21/19 00:01 00:09 00:13 Temperature Pulse Rate 108 H 104 H Respiratory 17 14 18 Rate Blood Pressure 144/97 144/97 O2 Sat by Pulse 96 97 98 Oximetry 12/09/21/19 09/21/19 00:15 00:30 00:45 Temperature Pulse Rate 107 H 102 H 106 H Respiratory 22 17 12 Rate Blood Pressure 141/94 135/91 135/97 O2 Sat by Pulse 96 95 Oximetry 09/21/19 09/21/19 09/21/19 01:00 01:15 01:30 Temperature Pulse Rate 98 H 104 H 101 H Respiratory 17 21 28 H Rate Blood Pressure 132/87 132/87 126/64 O2 Sat by Pulse 98 97 98 Oximetry 09/21/19 09/21/19 09/21/19 01:47 02:00 02:15 Temperature Pulse Rate Respiratory Rate Blood Pressure 126/64 138/85 122/69 O2 Sat by Pulse 98 97 97 Oximetry 09/21/19 09/21/19 09/21/19 02:30 02:45 03:00 Temperature Pulse Rate Respiratory Rate Blood Pressure 142/89 129/75 119/77 O2 Sat by Pulse 100 99 100 Oximetry 09/21/19 03:15 Temperature Pulse Rate Respiratory Rate Blood Pressure 141/89 O2 Sat by Pulse 97 Oximetry ED Medical Decision Making - Lab Data Result diagrams: 09/20/19 22:54 09/20/19 22:54 Laboratory Results - last 24 hr 09/20/19 09/20/19 09/20/19 22:30 22:54 22:54 WBC 9.4 RBC 4.25 Hgb 13.1 Hct 38.5 MCV 91 MCH 31 MCHC 34 RDW 14.3 Plt Count 214 Lymph % (Auto) 16.3 [place] % (Auto) 3.9 Eos % (Auto) 5.2 H Baso % (Auto) 0.8 Lymph # 1.5 [place] # 0.4 Eos # 0.5 H Baso # 0.1 Seg Neutrophils % 73.8 H Seg Neutrophils # 6.9 Sodium 138 Potassium 3.6 Chloride 98.0 Carbon Dioxide 22 Anion Gap 22 BUN 8 Creatinine 0.8 Estimated GFR > 60 BUN/Creatinine Ratio 10 Glucose 607 H* POC Glucose > 500 H Calcium 10.7 H Total Bilirubin Direct Bilirubin Indirect Bilirubin AST ALT Alkaline Phosphatase Troponin T Total Protein Albumin Albumin/Globulin Ratio Lipase Urine Color Urine Turbidity Urine pH Ur Specific [place] Urine Protein Urine Glucose (UA) Urine Ketones Urine Blood Urine Nitrite Urine Bilirubin Urine Urobilinogen Ur Leukocyte Esterase Urine WBC (Auto) Urine RBC (Auto) U Epithel Cells (Auto) Urine Bacteria (Auto) 09/20/19 09/21/19 09/21/19 22:57 00:06 01:29 WBC RBC Hgb Hct MCV MCH MCHC RDW Plt Count Lymph % (Auto) [place] % (Auto) Eos % (Auto) Baso % (Auto) Lymph # [place] # Eos # Baso # Seg Neutrophils % Seg Neutrophils # Sodium Potassium Chloride Carbon Dioxide Anion Gap BUN Creatinine Estimated GFR BUN/Creatinine Ratio Glucose POC Glucose > 500 H Calcium Total Bilirubin 0.40 Direct Bilirubin < 0.2 Indirect Bilirubin 0.2 AST 17 ALT 22 Alkaline Phosphatase 80 Troponin T < 0.010 Total Protein 6.1 L Albumin 3.8 L Albumin/Globulin Ratio 1.7 Lipase 23 Urine Color Straw Urine Turbidity Clear Urine pH 6.0 Ur Specific [place] 1.032 H Urine Protein <15 mg/dl Urine Glucose (UA) >=500 Urine Ketones Neg Urine Blood Neg Urine Nitrite Neg Urine Bilirubin Neg Urine Urobilinogen < 2.0 Ur Leukocyte Esterase Neg Urine WBC (Auto) 1.0 Urine RBC (Auto) 2.0 U Epithel Cells (Auto) 2.0 Urine Bacteria (Auto) 1+ 09/21/19 09/21/19 02:29 04:25 WBC RBC Hgb Hct MCV MCH MCHC RDW Plt Count Lymph % (Auto) [place] % (Auto) Eos % (Auto) Baso % (Auto) Lymph # [place] # Eos # Baso # Seg Neutrophils % Seg Neutrophils # Sodium Potassium Chloride Carbon Dioxide Anion Gap BUN Creatinine Estimated GFR BUN/Creatinine Ratio Glucose POC Glucose 449 H 286 H Calcium Total Bilirubin Direct Bilirubin Indirect Bilirubin AST ALT Alkaline Phosphatase Troponin T Total Protein Albumin Albumin/Globulin Ratio Lipase Urine Color Urine Turbidity Urine pH Ur Specific [place] Urine Protein Urine Glucose (UA) Urine Ketones Urine Blood Urine Nitrite Urine Bilirubin Urine Urobilinogen Ur Leukocyte Esterase Urine WBC (Auto) Urine RBC (Auto) U Epithel Cells (Auto) Urine Bacteria (Auto) - EKG Data When compared to previous EKG there are: no significant change - Radiology Data Radiology results: report reviewed - Medical Decision Making Patient comfortable. Reports symptom improvement. Updated with results. Plan discharge with outpatient follow up. Return if any worsening. Critical care attestation.: If time is entered above; I have spent that time in minutes in the direct care of this critically ill patient, excluding procedure time. ED Disposition Clinical Impression: Hyperglycemia Abdominal pain Qualifiers: Abdominal location: unspecified location Qualified Code(s): R10.9 - Unspecified abdominal pain Disposition: TO HOME OR SELFCARE Is pt being admited?: No Condition: Stable Instructions: Abdominal Pain (ED), Diabetic Hyperglycemia (ED) Prescriptions: Dicyclomine [Bentyl] 10 mg PO QID PRN #12 capsule PRN Reason: Cramps Referrals: DAQUAN ASTUDILLO MD [Primary Care Provider] - 2-3 Days [facility] [Provider Group] - 2-3 Days Time of Disposition: 04:30
[2019-09-21 04:54] VITALS: BP 127/82
== END 2019-09-21 04:59 | disposition home or self-care (01) ==
LOC: ED 21:15
DX: E11.65 Type 2 diabetes mellitus with hyperglycemia (principal); R10.9 Unspecified abdominal pain; I10 Essential (primary) hypertension; Z90.710 Acquired absence of both cervix and uterus; Z79.899 Other long term (current) drug therapy; Z88.0 Allergy status to penicillin
CPT/HCPCS: 36415; 74176; 80048; 80076; 81001; 82962; 83690; 84484; 85025; 93005; 93010; 96361; 96374; 96376; 99284; J7030; 96375; J1815

== ENCOUNTER 2019-10-04 04:30 | Emergency (ER) | payer SELFPAY ==
[2019-10-04 04:48] VITALS: BP 129/81
== END 2019-10-05 09:00 | disposition left against medical advice (07) ==
LOC: ED 04:30
DX: M54.9 Dorsalgia, unspecified (principal); Z53.21 Procedure and treatment not carried out due to patient leaving prior to being seen by health care provider

== ENCOUNTER 2019-12-23 09:18 | Emergency (ER) | payer SELFPAY ==
[2019-12-23] MEDS ORDERED: SODIUM CHLORIDE 0.9% 1000 ML 1,000 ML IV ONE (09:55)
[2019-12-23] MEDS ORDERED: ONDANSETRON 4 MG/2 ML INJ IV ONE ×2 (09:55→11:25)
[2019-12-23] MEDS ORDERED: LOPERAMIDE 2 MG CAP PO ONE (09:55)
[2019-12-23] MEDS ORDERED: ONDANSETRON 4 MG/2 ML INJ ONE (09:57)
[2019-12-23] MEDS ORDERED: SODIUM CHLORIDE 0.9% 1000 ML 1,000 ML ONE (09:57)
[2019-12-23] MEDS ORDERED: LOPERAMIDE 2 MG CAP ONE (09:57)
--- NOTE | 2019-12-23 10:03 | Emergency Department Report ---
ED N/V/D HPI - General Chief complaint: Nausea/Vomiting/Diarrhea Stated complaint: FLU LIKE SX Time Seen by Provider: 12/23/19 09:45 Source: patient, EMS Mode of arrival: Stretcher Limitations: No Limitations - History of Present Illness Initial comments: 54-year-old female with history of diabetes presents to ED with 3-day history of low-grade fever, sore throat, nausea, vomiting, diarrhea, occasional cough. Patient states she had a temperature of 100.0. States is unable to keep anything down. Patient states she has had an occasional mild, productive cough. Denies any shortness of breath. Denies any recent travel. 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 Denies any known exposure to COVID positive patients. Patient denies any severe elevation in her glucose. She denies any abdominal pain. Also reports headache. MD complaint: nausea, vomiting, diarrhea -: days(s) (3) Associated Abdominal Pain: No Severity: moderate Consistency: constant Improves with: none Worsens with: eating Context: other (unknown) Associated Symptoms: cough, fever/chills, headaches, nausea/vomiting. denies: chest pain, shortness of breath - Related Data Home Medications Medication Instructions Recorded Confirmed Last Taken Glimepiride [Amaryl] 8 mg PO QAM 06/24/13 11/08/18 04/02/15 Sitagliptin Phos/Metformin HCl 1 each PO DAILY 06/24/13 11/08/18 04/02/15 [Janumet 50-1,000 mg] carvediloL [Coreg] 25 mg PO DAILY 06/24/13 11/08/18 04/02/15 Losartan/Hydrochlorothiazide 1 each PO DAILY 04/02/15 11/08/18 Unknown [Hyzaar 50-12.5 TAB] Previous Rx's Medication Instructions Recorded Last Taken Type Acetaminophen/Codeine [Tylenol 1 tab PO Q6H PRN #5 tab 04/01/15 04/02/15 Rx /Codeine # 3 tab] Famotidine [Pepcid] 20 mg PO BID 5 Days tablet 11/09/18 Unknown Rx Insulin Glargine,Hum.rec.anlog 45 units SQ QHS #1 vial 11/09/18 Unknown Rx [Lantus] diphenhydrAMINE [Benadryl CAP] 25 mg PO Q8HR #10 capsule 11/09/18 Unknown Rx predniSONE [Deltasone] 20 mg PO QDAY 5 Days tab 11/09/18 Unknown Rx Dicyclomine [Bentyl] 10 mg PO QID PRN #12 capsule 09/21/19 Unknown Rx Ondansetron [Zofran Odt] 4 mg PO Q8HR PRN #20 tab.rapdis 12/23/19 Unknown Rx Promethazine [Phenergan TAB] 25 mg PO Q6HR PRN #20 tab 12/23/19 Unknown Rx Allergies Allergy/AdvReac Type Severity Reaction Status Date / Time Penicillins Allergy Rash Verified 04/02/15 11:54 ED Review of Systems ROS: Stated complaint: FLU LIKE SX Other details as noted in HPI Comment: All other systems reviewed and negative Constitutional: fever ENT: throat pain Respiratory: cough. denies: shortness of breath Cardiovascular: denies: chest pain Gastrointestinal: nausea, vomiting, diarrhea. denies: abdominal pain Neurological: headache ED Past Medical Hx - Past Medical History Previous Medical History?: Yes Hx Hypertension: Yes Hx Diabetes: Yes Additional medical history: cdiff - Surgical History Past Surgical History?: Yes Additional Surgical History: hysterectomy - Social History Smoking Status: Unknown if ever smoked Substance Use Type: None - Medications Home Medications: Home Medications Medication Instructions Recorded Confirmed Last Taken Type Glimepiride [Amaryl] 8 mg PO QAM 06/24/13 11/08/18 04/02/15 History Sitagliptin Phos/Metformin HCl 1 each PO DAILY 06/24/13 11/08/18 04/02/15 History [Janumet 50-1,000 mg] carvediloL [Coreg] 25 mg PO DAILY 06/24/13 11/08/18 04/02/15 History Acetaminophen/Codeine [Tylenol 1 tab PO Q6H PRN #5 tab 04/01/15 11/08/18 04/02/15 Rx /Codeine # 3 tab] Losartan/Hydrochlorothiazide 1 each PO DAILY 04/02/15 11/08/18 Unknown History [Hyzaar 50-12.5 TAB] Famotidine [Pepcid] 20 mg PO BID 5 Days tablet 11/09/18 Unknown Rx Insulin Glargine,Hum.rec.anlog 45 units SQ QHS #1 vial 11/09/18 Unknown Rx [Lantus] diphenhydrAMINE [Benadryl CAP] 25 mg PO Q8HR #10 capsule 11/09/18 Unknown Rx predniSONE [Deltasone] 20 mg PO QDAY 5 Days tab 11/09/18 Unknown Rx Dicyclomine [Bentyl] 10 mg PO QID PRN #12 capsule 09/21/19 Unknown Rx Ondansetron [Zofran Odt] 4 mg PO Q8HR PRN #20 tab.rapdis 12/23/19 Unknown Rx Promethazine [Phenergan TAB] 25 mg PO Q6HR PRN #20 tab 12/23/19 Unknown Rx ED Physical Exam - General Limitations: No Limitations General appearance: alert, in no apparent distress - Head Head exam: Present: atraumatic, normocephalic - Eye Eye exam: Present: normal appearance, PERRL, EOMI - ENT ENT exam: Present: mucous membranes moist - Neck Neck exam: Present: normal inspection - Respiratory Respiratory exam: Present: normal lung sounds bilaterally. Absent: respiratory distress - Cardiovascular Cardiovascular Exam: Present: regular rate, normal rhythm - GI/Abdominal GI/Abdominal exam: Present: soft. Absent: distended, tenderness - Extremities Exam Extremities exam: Present: normal inspection - Neurological Exam Neurological exam: Present: alert, oriented X3 - Psychiatric Psychiatric exam: Present: normal affect, normal mood - Skin Skin exam: Present: warm, dry, intact, normal color ED Course Vital Signs 12/23/19 12/23/19 12/23/19 09:45 09:50 10:00 Temperature 99.8 F H Pulse Rate 81 Respiratory 20 15 13 Rate Blood Pressure 165/84 Blood Pressure [Left] O2 Sat by Pulse 98 99 98 Oximetry 12/23/19 12/23/19 12/23/19 10:30 11:00 11:30 Temperature Pulse Rate 84 82 Respiratory 9 L 14 16 Rate Blood Pressure 173/90 170/95 173/81 Blood Pressure [Left] O2 Sat by Pulse 99 99 98 Oximetry 12/23/19 12/23/19 12/23/19 12:00 12:30 13:00 Temperature Pulse Rate Respiratory 12 13 18 Rate Blood Pressure 164/88 158/72 172/98 Blood Pressure [Left] O2 Sat by Pulse 98 98 96 Oximetry 12/23/19 13:19 Temperature 99.8 F H Pulse Rate Respiratory 16 Rate Blood Pressure Blood Pressure 172/98 [Left] O2 Sat by Pulse 100 Oximetry ED Medical Decision Making - Lab Data Result diagrams: 12/23/19 10:31 12/23/19 10:31 - Radiology Data Radiology results: report reviewed, image reviewed - Medical Decision Making - low grade temp w/ N/V/D - glucose 292, bicarb 20, AG 26, VBG 7.44 - pt does not appear to be in DKA - 1L bolus IV fluids given - vitals stable - pt reported occasional cough, CXR negative, no resp distress - low suspicion for COVID as sx's mainly GI; however, advised to self-quarantine for 14 days - return precautions given - Differential Diagnosis flu, DKA, viral illness Critical care attestation.: If time is entered above; I have spent that time in minutes in the direct care of this critically ill patient, excluding procedure time. ED Disposition Clinical Impression: Hyperglycemia, Vomiting and diarrhea Disposition: TO HOME OR SELFCARE Is pt being admited?: No Condition: Stable Instructions: Gastroenteritis (ED), Diabetic Hyperglycemia (ED) Additional Instructions: Your flu and strep tests were negative. Your chest x-ray was normal. We are unable to test for coronavirus in the ER at this time. It is advised that you self-quarantine for 14 days to be safe. If your symptoms worsen, return to the ER. Prescriptions: Promethazine [Phenergan TAB] 25 mg PO Q6HR PRN #20 tab PRN Reason: Nausea Ondansetron [Zofran Odt] 4 mg PO Q8HR PRN #20 tab.rapdis PRN Reason: Vomiting Referrals: PRIMARY CARE,MD [Primary Care Provider] - 3-5 Days Forms: Work/School Release Form(ED) Time of Disposition: 12:29
[2019-12-23 10:55] LABS: Basophils # (Auto) 0.1 K/mm3 (0.0-0.1); Basophils % (Auto) 0.5 % (0.0-1.8); Hematocrit 40.5 % (30.3-42.9); Hemoglobin 14.1 gm/dl (10.1-14.3); Lymphocytes # (Auto) 1.1 K/mm3 (1.2-5.4); Lymphocytes % (Auto) 10.2 % (13.4-35.0); Mean Corpuscular HGB Conc 35 % (30-34); Mean Corpuscular Volume 85 fl (79-97); Monocytes # (Auto) 0.2 K/mm3 (0.0-0.8); Monocytes % (Auto) 1.4 % (0.0-7.3); Platelet Count 275 K/mm3 (140-440); Red Blood Count 4.74 M/mm3 (3.65-5.03); Red Cell Distribution Width 13.4 % (13.2-15.2)
--- NOTE | 2019-12-23 11:35 | XRay Report ---
CHEST 1 VIEW 12/23/2019 10:29 AM INDICATION / CLINICAL INFORMATION: cough. COMPARISON: None available. FINDINGS: SUPPORT DEVICES: None. HEART / MEDIASTINUM: Normal heart size. Atherosclerosis in the thoracic aorta. LUNGS / PLEURA: No significant pulmonary or pleural abnormality. No pneumothorax. ADDITIONAL FINDINGS: No significant additional findings. IMPRESSION: 1. No acute findings. Signer Name: Faisal Morris MD Signed: 12/23/2019 11:30 AM Workstation Name: [id number]
[2019-12-23] MEDS ORDERED: METOCLOPRAMIDE 10 MG/2 ML INJ IV ONE (12:07)
[2019-12-23 12:11] LABS: Alanine Aminotransferase 8 units/L (7-56); Albumin 4.7 g/dL (3.9-5); BUN/Creatinine Ratio 21; Blood Urea Nitrogen 15 mg/dL (7-17); Calcium 10.1 mg/dL (8.4-10.2); Hemolysis Index 12
[2019-12-23 12:14] LABS: Bilirubin,Direct < 0.2 mg/dL (0-0.2)
[2019-12-23 13:19] VITALS: BP 172/98
== END 2019-12-23 13:30 | disposition home or self-care (01) ==
LOC: ED 09:18
DX: R11.10 Vomiting, unspecified (principal); R19.7 Diarrhea, unspecified; E11.65 Type 2 diabetes mellitus with hyperglycemia; I10 Essential (primary) hypertension; Z90.710 Acquired absence of both cervix and uterus; Z79.4 Long term (current) use of insulin; Z79.899 Other long term (current) drug therapy
CPT/HCPCS: 36415; 71045; 80048; 80076; 82805; 83690; 85025; 87116; 87400; 87430; 96361; 96374; 96375; 96376; 99284; J2405; J2765; J7030

== ENCOUNTER 2020-08-05 07:24 | Emergency (ER) | payer OTHER ==
[2020-08-05] MEDS ORDERED: ONDANSETRON 4 MG/2 ML INJ ONE (07:50)
[2020-08-05] MEDS ORDERED: ONDANSETRON 4 MG/2 ML INJ IV ONE ×2 (07:52→08:44)
[2020-08-05] MEDS ORDERED: SODIUM CHLORIDE 0.9% 1000 ML 1,000 ML IV ONE ×2 (07:53→09:54)
--- NOTE | 2020-08-05 07:56 | Emergency Department Report ---
ED Abdominal Pain HPI - General Chief Complaint: Abdominal Pain Stated Complaint: STOMACH PAIN Time Seen by Provider: 08/05/20 07:52 Source: patient, EMS Mode of arrival: Wheelchair Limitations: No Limitations - History of Present Illness Initial Comments: This is a 55-year old diabetic female who was presented to this emergency department a number of times for nausea vomiting abdominal pain. 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 In [address] of her abdomen and pelvis which showed no abnormalities other than previous hysterectomy. The patient presents with a complaint of nausea vomiting and lower abdominal discomfort for the past 16 hours. She reports no signs of GI bleeding. She states she had a normal bowel movement about 4 hours ago. She does not report fever or chills it appears that she has been here for similar symptoms a number of times over the past 2 years. She tells me she has never been diagnosed with diabetic gastroparesis. She states that she is never been evaluated by a GI specialist. MD Complaint: abdominal pain (Lower abdominal discomfort but not acute pain) -: Gradual, hour(s) Radiation: none Migration to: no migration Severity: moderate Quality: aching Improves With: nothing Worsens With: nothing Associated Symptoms: denies other symptoms, nausea, vomiting - Related Data Home Medications Medication Instructions Recorded Confirmed Last Taken Glimepiride [Amaryl] 8 mg PO QAM 06/24/13 11/08/18 04/02/15 Sitagliptin Phos/Metformin HCl 1 each PO DAILY 06/24/13 11/08/18 04/02/15 [Janumet 50-1,000 mg] carvediloL [Coreg] 25 mg PO DAILY 06/24/13 11/08/18 04/02/15 Losartan/Hydrochlorothiazide 1 each PO DAILY 04/02/15 11/08/18 Unknown [Hyzaar 50-12.5 TAB] Previous Rx's Medication Instructions Recorded Last Taken Type Acetaminophen/Codeine [Tylenol 1 tab PO Q6H PRN #5 tab 04/01/15 04/02/15 Rx /Codeine # 3 tab] Famotidine [Pepcid] 20 mg PO BID 5 Days tablet 11/09/18 Unknown Rx Insulin Glargine,Hum.rec.anlog 45 units SQ QHS #1 vial 11/09/18 Unknown Rx [Lantus] diphenhydrAMINE [Benadryl CAP] 25 mg PO Q8HR #10 capsule 11/09/18 Unknown Rx predniSONE [Deltasone] 20 mg PO QDAY 5 Days tab 11/09/18 Unknown Rx Dicyclomine [Bentyl] 10 mg PO QID PRN #12 capsule 09/21/19 Unknown Rx Ondansetron [Zofran Odt] 4 mg PO Q8HR PRN #20 tab.rapdis 12/23/19 Unknown Rx Promethazine [Phenergan TAB] 25 mg PO Q6HR PRN #20 tab 12/23/19 Unknown Rx Nitrofurantoin Grayson/M-Cryst 100 mg PO Q12HR #14 capsule 08/05/20 Unknown Rx [Macrobid CAP] Ondansetron [Zofran ODT TAB] 4 mg PO Q6H #7 tab.rapdis 08/05/20 Unknown Rx traMADoL [Ultram] 50 mg PO Q6HR PRN #14 tablet 08/05/20 Unknown Rx Allergies Allergy/AdvReac Type Severity Reaction Status Date / Time Penicillins Allergy Rash Verified 08/05/20 07:26 ED Review of Systems ROS: Stated complaint: STOMACH PAIN Other details as noted in HPI Constitutional: denies: chills, fever Eyes: denies: eye pain, vision change ENT: denies: ear pain, throat pain Respiratory: denies: cough, shortness of breath Cardiovascular: denies: chest pain, palpitations Endocrine: no symptoms reported Gastrointestinal: as per HPI, abdominal pain, nausea, vomiting. denies: diarrhea Genitourinary: denies: urgency, dysuria, discharge Musculoskeletal: denies: back pain, joint swelling, arthralgia Skin: denies: rash, lesions Neurological: denies: headache, weakness, paresthesias Psychiatric: denies: anxiety, depression Hematological/Lymphatic: denies: easy bleeding, easy bruising ED Past Medical Hx - Past Medical History Hx Hypertension: Yes Hx Diabetes: Yes Additional medical history: cdiff - Surgical History Additional Surgical History: hysterectomy - Social History Smoking Status: Never Smoker Substance Use Type: None - Medications Home Medications: Home Medications Medication Instructions Recorded Confirmed Last Taken Type Glimepiride [Amaryl] 8 mg PO QAM 06/24/13 11/08/18 04/02/15 History Sitagliptin Phos/Metformin HCl 1 each PO DAILY 06/24/13 11/08/18 04/02/15 History [Janumet 50-1,000 mg] carvediloL [Coreg] 25 mg PO DAILY 06/24/13 11/08/18 04/02/15 History Acetaminophen/Codeine [Tylenol 1 tab PO Q6H PRN #5 tab 04/01/15 11/08/18 04/02/15 Rx /Codeine # 3 tab] Losartan/Hydrochlorothiazide 1 each PO DAILY 04/02/15 11/08/18 Unknown History [Hyzaar 50-12.5 TAB] Famotidine [Pepcid] 20 mg PO BID 5 Days tablet 11/09/18 Unknown Rx Insulin Glargine,Hum.rec.anlog 45 units SQ QHS #1 vial 11/09/18 Unknown Rx [Lantus] diphenhydrAMINE [Benadryl CAP] 25 mg PO Q8HR #10 capsule 11/09/18 Unknown Rx predniSONE [Deltasone] 20 mg PO QDAY 5 Days tab 11/09/18 Unknown Rx Dicyclomine [Bentyl] 10 mg PO QID PRN #12 capsule 09/21/19 Unknown Rx Ondansetron [Zofran Odt] 4 mg PO Q8HR PRN #20 tab.rapdis 12/23/19 Unknown Rx Promethazine [Phenergan TAB] 25 mg PO Q6HR PRN #20 tab 12/23/19 Unknown Rx Nitrofurantoin [place]/M-Cryst 100 mg PO Q12HR #14 capsule 08/05/20 Unknown Rx [Macrobid CAP] Ondansetron [Zofran ODT TAB] 4 mg PO Q6H #7 tab.rapdis 08/05/20 Unknown Rx traMADoL [Ultram] 50 mg PO Q6HR PRN #14 tablet 08/05/20 Unknown Rx ED Physical Exam - General Limitations: Physical Limitation General appearance: alert, in no apparent distress - Head Head exam: Present: atraumatic, normocephalic - Eye Eye exam: Present: normal appearance. Absent: scleral icterus - ENT ENT exam: Present: mucous membranes moist - Neck Neck exam: Present: normal inspection - Respiratory Respiratory exam: Present: normal lung sounds bilaterally. Absent: respiratory distress - Cardiovascular Cardiovascular Exam: Present: regular rate, normal rhythm. Absent: systolic murmur, diastolic murmur, rubs, gallop - GI/Abdominal GI/Abdominal exam: Present: soft, normal bowel sounds. Absent: distended, tenderness, guarding, rebound, rigid - Extremities Exam Extremities exam: Present: normal inspection - Back Exam Back exam: Present: normal inspection - Neurological Exam Neurological exam: Present: alert, oriented X3, CN II-XII intact. Absent: motor sensory deficit - Psychiatric Psychiatric exam: Present: normal affect, normal mood - Skin Skin exam: Present: warm, dry, intact, normal color. Absent: rash ED Course Vital Signs 08/05/20 08/05/20 08/05/20 07:26 08:18 08:45 Temperature 99.3 F 98.2 F Pulse Rate 75 86 Respiratory 22 18 18 Rate Blood Pressure 158/92 Blood Pressure 153/90 [Right] O2 Sat by Pulse 100 100 Oximetry 08/05/20 08:48 Temperature Pulse Rate Respiratory 18 Rate Blood Pressure Blood Pressure [Right] O2 Sat by Pulse Oximetry ED Medical Decision Making - Lab Data Result diagrams: 08/05/20 08:24 08/05/20 08:24 Laboratory Results - last 24 hr 08/05/20 08/05/20 08/05/20 07:53 08:24 08:24 WBC 13.0 H RBC 4.03 Hgb 12.3 Hct 35.2 MCV 87 MCH 31 MCHC 35 H RDW 13.4 Plt Count 283 Sodium 140 Potassium 4.4 Chloride 102.5 Carbon Dioxide 22 Anion Gap 20 BUN 20 H Creatinine 1.5 H Estimated GFR 36 BUN/Creatinine Ratio 13 Glucose 262 H POC Glucose 237 H Calcium 10.6 H Magnesium 2.20 Total Bilirubin 0.40 Direct Bilirubin < 0.2 Indirect Bilirubin 0.2 AST 11 ALT 7 Alkaline Phosphatase 87 Total Protein 8.3 H Albumin 4.2 Albumin/Globulin Ratio 1.0 Lipase 53 08/05/20 08:48 WBC RBC Hgb Hct MCV MCH MCHC RDW Plt Count Sodium Potassium Chloride Carbon Dioxide Anion Gap BUN Creatinine Estimated GFR BUN/Creatinine Ratio Glucose POC Glucose 228 H Calcium Magnesium Total Bilirubin Direct Bilirubin Indirect Bilirubin AST ALT Alkaline Phosphatase Total Protein Albumin Albumin/Globulin Ratio Lipase Laboratory Results - last 24 hr 08/05/20 08/05/20 08/05/20 07:53 08:24 08:24 WBC 13.0 H RBC 4.03 Hgb 12.3 Hct 35.2 MCV 87 MCH 31 MCHC 35 H RDW 13.4 Plt Count 283 Add Manual Diff Complete Total Counted 100 Seg Neuts % (Manual) 96.0 H Band Neutrophils % 0 Lymphocytes % (Manual) 3.0 L Reactive Lymphs % (Man) 0 Monocytes % (Manual) 1.0 Eosinophils % (Manual) 0 Basophils % (Manual) 0 Metamyelocytes % 0 Myelocytes % 0 Promyelocytes % 0 Blast Cells % 0 Nucleated RBC % Not Reportable Seg Neutrophils # Man 12.5 H Band Neutrophils # 0.0 Lymphocytes # (Manual) 0.4 L Abs React Lymphs (Man) 0.0 Monocytes # (Manual) 0.1 Eosinophils # (Manual) 0.0 Basophils # (Manual) 0.0 Metamyelocytes # 0.0 Myelocytes # 0.0 Promyelocytes # 0.0 Blast Cells # 0.0 WBC Morphology Not Reportable Hypersegmented Neuts Not Reportable Hyposegmented Neuts Not Reportable Hypogranular Neuts Not Reportable Smudge Cells Not Reportable Toxic Granulation Not Reportable Toxic Vacuolation Not Reportable Dohle Bodies Not Reportable Pelger-Huet Anomaly Not Reportable Chandan Rods Not Reportable Platelet Estimate Consistent w auto Clumped Platelets Not Reportable Plt Clumps, EDTA Not Reportable Large Platelets Not Reportable Giant Platelets Not Reportable Platelet Satelliting Not Reportable Plt Morphology Comment Not Reportable RBC Morphology Not Reportable Dimorphic RBCs Not Reportable Polychromasia Not Reportable Hypochromasia 1+ Poikilocytosis Not Reportable Anisocytosis Not Reportable Microcytosis Not Reportable Macrocytosis Few Spherocytes Not Reportable Pappenheimer Bodies Not Reportable Sickle Cells Not Reportable Target Cells Not Reportable Tear Drop Cells Not Reportable Ovalocytes Not Reportable Helmet Cells Not Reportable Gutierrez-[place] Bodies Not Reportable [place] Rings Not Reportable Dante Cells Not Reportable Bite Cells Not Reportable Crenated Cell Not Reportable Elliptocytes Not Reportable Acanthocytes (Spur) Not Reportable Rouleaux Not Reportable Hemoglobin C Crystals Not Reportable Schistocytes Not Reportable Malaria parasites Not Reportable Mike Bodies Not Reportable Hem Pathologist Commnt No Sodium 140 Potassium 4.4 Chloride 102.5 Carbon Dioxide 22 Anion Gap 20 BUN 20 H Creatinine 1.5 H Estimated GFR 36 BUN/Creatinine Ratio 13 Glucose 262 H POC Glucose 237 H Calcium 10.6 H Magnesium 2.20 Total Bilirubin 0.40 Direct Bilirubin < 0.2 Indirect Bilirubin 0.2 AST 11 ALT 7 Alkaline Phosphatase 87 Total Protein 8.3 H Albumin 4.2 Albumin/Globulin Ratio 1.0 Lipase 53 08/05/20 08:48 WBC RBC Hgb Hct MCV MCH MCHC RDW Plt Count Add Manual Diff Total Counted Seg Neuts % (Manual) Band Neutrophils % Lymphocytes % (Manual) Reactive Lymphs % (Man) Monocytes % (Manual) Eosinophils % (Manual) Basophils % (Manual) Metamyelocytes % Myelocytes % Promyelocytes % Blast Cells % Nucleated RBC % Seg Neutrophils # Man Band Neutrophils # Lymphocytes # (Manual) Abs React Lymphs (Man) Monocytes # (Manual) Eosinophils # (Manual) Basophils # (Manual) Metamyelocytes # Myelocytes # Promyelocytes # Blast Cells # WBC Morphology Hypersegmented Neuts Hyposegmented Neuts Hypogranular Neuts Smudge Cells Toxic Granulation Toxic Vacuolation Dohle Bodies Pelger-Huet Anomaly Chandan Rods Platelet Estimate Clumped Platelets Plt Clumps, EDTA Large Platelets Giant Platelets Platelet Satelliting Plt Morphology Comment RBC Morphology Dimorphic RBCs Polychromasia Hypochromasia Poikilocytosis Anisocytosis Microcytosis Macrocytosis Spherocytes Pappenheimer Bodies Sickle Cells Target Cells Tear Drop Cells Ovalocytes Helmet Cells Gutierrez-[place] Bodies [place] Rings Dante Cells Bite Cells Crenated Cell Elliptocytes Acanthocytes (Spur) Rouleaux Hemoglobin C Crystals Schistocytes Malaria parasites Mike Bodies Hem Pathologist Commnt Sodium Potassium Chloride Carbon Dioxide Anion Gap BUN Creatinine Estimated GFR BUN/Creatinine Ratio Glucose POC Glucose 228 H Calcium Magnesium Total Bilirubin Direct Bilirubin Indirect Bilirubin AST ALT Alkaline Phosphatase Total Protein Albumin Albumin/Globulin Ratio Lipase Laboratory Results - last 24 hr 08/05/20 08/05/20 08/05/20 07:53 08:24 08:24 WBC 13.0 H RBC 4.03 Hgb 12.3 Hct 35.2 MCV 87 MCH 31 MCHC 35 H RDW 13.4 Plt Count 283 Add Manual Diff Complete Total Counted 100 Seg Neuts % (Manual) 96.0 H Band Neutrophils % 0 Lymphocytes % (Manual) 3.0 L Reactive Lymphs % (Man) 0 Monocytes % (Manual) 1.0 Eosinophils % (Manual) 0 Basophils % (Manual) 0 Metamyelocytes % 0 Myelocytes % 0 Promyelocytes % 0 Blast Cells % 0 Nucleated RBC % Not Reportable Seg Neutrophils # Man 12.5 H Band Neutrophils # 0.0 Lymphocytes # (Manual) 0.4 L Abs React Lymphs (Man) 0.0 Monocytes # (Manual) 0.1 Eosinophils # (Manual) 0.0 Basophils # (Manual) 0.0 Metamyelocytes # 0.0 Myelocytes # 0.0 Promyelocytes # 0.0 Blast Cells # 0.0 WBC Morphology Not Reportable Hypersegmented Neuts Not Reportable Hyposegmented Neuts Not Reportable Hypogranular Neuts Not Reportable Smudge Cells Not Reportable Toxic Granulation Not Reportable Toxic Vacuolation Not Reportable Dohle Bodies Not Reportable Pelger-Huet Anomaly Not Reportable Chandan Rods Not Reportable Platelet Estimate Consistent w auto Clumped Platelets Not Reportable Plt Clumps, EDTA Not Reportable Large Platelets Not Reportable Giant Platelets Not Reportable Platelet Satelliting Not Reportable Plt Morphology Comment Not Reportable RBC Morphology Not Reportable Dimorphic RBCs Not Reportable Polychromasia Not Reportable Hypochromasia 1+ Poikilocytosis Not Reportable Anisocytosis Not Reportable Microcytosis Not Reportable Macrocytosis Few Spherocytes Not Reportable Pappenheimer Bodies Not Reportable Sickle Cells Not Reportable Target Cells Not Reportable Tear Drop Cells Not Reportable Ovalocytes Not Reportable Helmet Cells Not Reportable Gutierrez-[place] Bodies Not Reportable [place] Rings Not Reportable Dante Cells Not Reportable Bite Cells Not Reportable Crenated Cell Not Reportable Elliptocytes Not Reportable Acanthocytes (Spur) Not Reportable Rouleaux Not Reportable Hemoglobin C Crystals Not Reportable Schistocytes Not Reportable Malaria parasites Not Reportable Mike Bodies Not Reportable Hem Pathologist Commnt No Sodium 140 Potassium 4.4 Chloride 102.5 Carbon Dioxide 22 Anion Gap 20 BUN 20 H Creatinine 1.5 H Estimated GFR 36 BUN/Creatinine Ratio 13 Glucose 262 H POC Glucose 237 H Calcium 10.6 H Magnesium 2.20 Total Bilirubin 0.40 Direct Bilirubin < 0.2 Indirect Bilirubin 0.2 AST 11 ALT 7 Alkaline Phosphatase 87 Total Protein 8.3 H Albumin 4.2 Albumin/Globulin Ratio 1.0 Lipase 53 08/05/20 08:48 WBC RBC Hgb Hct MCV MCH MCHC RDW Plt Count Add Manual Diff Total Counted Seg Neuts % (Manual) Band Neutrophils % Lymphocytes % (Manual) Reactive Lymphs % (Man) Monocytes % (Manual) Eosinophils % (Manual) Basophils % (Manual) Metamyelocytes % Myelocytes % Promyelocytes % Blast Cells % Nucleated RBC % Seg Neutrophils # Man Band Neutrophils # Lymphocytes # (Manual) Abs React Lymphs (Man) Monocytes # (Manual) Eosinophils # (Manual) Basophils # (Manual) Metamyelocytes # Myelocytes # Promyelocytes # Blast Cells # WBC Morphology Hypersegmented Neuts Hyposegmented Neuts Hypogranular Neuts Smudge Cells Toxic Granulation Toxic Vacuolation Dohle Bodies Pelger-Huet Anomaly Chandan Rods Platelet Estimate Clumped Platelets Plt Clumps, EDTA Large Platelets Giant Platelets Platelet Satelliting Plt Morphology Comment RBC Morphology Dimorphic RBCs Polychromasia Hypochromasia Poikilocytosis Anisocytosis Microcytosis Macrocytosis Spherocytes Pappenheimer Bodies Sickle Cells Target Cells Tear Drop Cells Ovalocytes Helmet Cells Gutierrez-[place] Bodies [place] Cells Bite Cells Crenated Cell Elliptocytes Acanthocytes (Spur) Rouleaux Hemoglobin C Crystals Schistocytes Malaria parasites Mike Bodies Hem Pathologist Commnt Sodium Potassium Chloride Carbon Dioxide Anion Gap BUN Creatinine Estimated GFR BUN/Creatinine Ratio Glucose POC Glucose 228 H Calcium Magnesium Total Bilirubin Direct Bilirubin Indirect Bilirubin AST ALT Alkaline Phosphatase Total Protein Albumin Albumin/Globulin Ratio Lipase - Radiology Data Radiology results: report reviewed (No acute process on CT) Critical care attestation.: If time is entered above; I have spent that time in minutes in the direct care of this critically ill patient, excluding procedure time. ED Disposition Clinical Impression: Volume depletion, Renal insufficiency Abdominal pain Qualifiers: Abdominal location: lower abdomen, unspecified Qualified Code(s): R10.30 - Lower abdominal pain, unspecified Hyperglycemia due to type 2 diabetes mellitus Qualifiers: Diabetes mellitus nursing home insulin use: unspecified watermelon inspector insulin use status Qualified Code(s): E11.65 - Type 2 diabetes mellitus with hyperglycemia Disposition: - TO HOME OR SELFCARE Is pt being admited?: No Does the pt Need Aspirin: No Condition: Stable Instructions: Abdominal Pain (ED), Diabetes Mellitus Type 2 in Adults (ED), Impaired Kidney Function (ED) Additional Instructions: Follow-up with your primary care physician tomorrow. Repeat blood work is recommended because your creatinine was somewhat high. This might be due to vomiting and dehydration. However it does require follow-up. I have also ordered a urine culture which should be checked in 2 to 3 days. I will also refer you to our nephrology doctors. Return to the emergency department any acute change or problem. Prescriptions: Nitrofurantoin Grayson/M-Cryst [Macrobid CAP] 100 mg PO Q12HR #14 capsule traMADoL [Ultram] 50 mg PO Q6HR PRN #14 tablet PRN Reason: Pain Ondansetron [Zofran ODT TAB] 4 mg PO Q6H #7 tab.rapdis Referrals: PRIMARY CAREMD [Primary Care Provider] - 2-3 Days ANDREA PATEL MD [Staff Physician] - 2-3 Days Time of Disposition: 13:25
[2020-08-05] MEDS ORDERED: MORPHINE 4 MG/1 ML INJ ONE (08:11)
[2020-08-05] MEDS ORDERED: diphenhydrAMINE 50 MG/ML VIAL ONE (08:11)
[2020-08-05] MEDS ORDERED: diphenhydrAMINE 50 MG/ML VIAL IV ONE (08:12)
[2020-08-05] MEDS ORDERED: MORPHINE 2 MG/1 ML INJ IV ONE (08:12)
[2020-08-05 08:27] VITALS: BP 153/90
[2020-08-05] MEDS ORDERED: PANTOPRAZOLE 40 MG INJ IV ONE ×2 (08:37→08:44)
[2020-08-05] MEDS ORDERED: METOCLOPRAMIDE 10 MG/2 ML INJ ONE (08:38)
[2020-08-05] MEDS ORDERED: METOCLOPRAMIDE 10 MG/2 ML INJ IV ONE (08:43)
[2020-08-05] MEDS ORDERED: MORPHINE 4 MG/1 ML INJ IM ONE (08:45)
[2020-08-05 08:55] LABS: Alanine Aminotransferase 7 units/L (7-56); Albumin 4.2 g/dL (3.9-5); BUN/Creatinine Ratio 13; Blood Urea Nitrogen 20 mg/dL (7-17); Calcium 10.6 mg/dL (8.4-10.2); Hemolysis Index 13
[2020-08-05 09:01] LABS: Bilirubin,Direct < 0.2 mg/dL (0-0.2)
[2020-08-05 09:30] LABS: Hematocrit 35.2 % (30.3-42.9); Hemoglobin 12.3 gm/dl (10.1-14.3); Mean Corpuscular HGB Conc 35 % (30-34); Mean Corpuscular Volume 87 fl (79-97); Platelet Count 283 K/mm3 (140-440); Red Blood Count 4.03 M/mm3 (3.65-5.03); Red Cell Distribution Width 13.4 % (13.2-15.2)
[2020-08-05 10:18] LABS: Basophils % (Manual) 0 % (0.0-1.8); Eosinophils % (Manual) 0 % (0.0-4.3); Total Cells Counted 100
[2020-08-05 10:19] LABS: Hypochromasia 1+; Macrocytosis Few; Platelet Estimate Consistent w Auto
--- NOTE | 2020-08-05 10:34 | Cat Scan Report ---
CT ABDOMEN AND PELVIS WITHOUT CONTRAST HISTORY: Lower abdominal pain. COMPARISON: Prior CT on 09/21/2019. TECHNIQUE: Routine abdominal and pelvic CT exam performed without contrast. Lack of intravenous cont rast limits evaluation of the vascular and solid organs.. All CT scans at this location are performed using CT dose reduction for ALARA by means of automated exposure control. FINDINGS: CT ABDOMEN: Lung Bases: No significant abnormality. Liver: No significant abnormality. Biliary: No significant abnormality. Spleen: No significant abnormality. Unenlarged. Pancreas: No significant abnormality. Adrenals: No significant abnormality. Kidneys: No significant abnormality. Lymphatics: No lymphadenopathy. Vasculature: Atherosclerotic but nonaneurysmal abdominal aorta. Bowel/Peritoneum: No significant abnormality. No free air. No free fluid. Normal appendix. CT PELVIC: : The uterus is surgically absent. There are no pelvic masses. Lymphatics: No lymphadenopathy. Osseous Structures: No aggressive appearing osseous lesions. Additional Findings: None IMPRESSION: 1. No acute findings or adverse change from prior exams. Signer Name: Faisal Morris MD Signed: 08/05/2020 10:29 AM Workstation Name: [employer]
[2020-08-05 13:02] LABS: Bacteria,Urine 3+ /HPF (Negative); Bilirubin,Urine NEG (Negative); Blood,Urine SM (Negative); Color,Urine Yellow (Yellow); Mucus,Urine FEW /HPF; RBC,Urine < 1.0 /HPF (0.0-6.0); Urobilinogen,Urine < 2.0 mg/dL (<2.0)
[2020-08-05] MEDS ORDERED: HYDROcodone/ACETAMINOPHEN 5-325 MG TAB ONE (13:03)
[2020-08-05 13:06] LABS: Amphetamine Screen,Urine Negative; Benzodiazepines Screen,Urine Negative; Cannabinoid Screen,Urine Negative; Cocaine Screen,Urine Negative; Methadone Screen,Urine Negative; Opiate Screen,Urine Negative
[2020-08-05] MEDS ORDERED: HYDROcodone/ACETAMINOPHEN 5-325 MG TAB PO ONE (13:47)
== END 2020-08-05 15:37 | disposition home or self-care (01) ==
LOC: ED 07:24
DX: E11.65 Type 2 diabetes mellitus with hyperglycemia (principal); N28.9 Disorder of kidney and ureter, unspecified; E86.9 Volume depletion, unspecified; R10.30 Lower abdominal pain, unspecified; I10 Essential (primary) hypertension; Z90.710 Acquired absence of both cervix and uterus; Z79.4 Long term (current) use of insulin; Z79.899 Other long term (current) drug therapy; Z88.0 Allergy status to penicillin
CPT/HCPCS: 36415; 74176; 80048; 80076; 80307; 81001; 82962; 83690; 83735; 85007; 85025; 87086; 96361; 96372; 96374; 96375; 96376; 99284; C9113; J1200; J2270; J2405; J2765

== ENCOUNTER 2021-07-05 07:56 | Emergency (ER) | payer OTHER ==
[2021-07-05] MEDS ORDERED: SODIUM CHLORIDE 0.9% 1000 ML 1,000 ML IV ONE (08:09)
--- NOTE | 2021-07-05 08:15 | Emergency Department Report ---
ED General Adult HPI - General Chief complaint: Dizziness Stated complaint: GROUND LEVEL FALL/HYPERGLYCEMIA Time Seen by Provider: 07/05/21 08:02 Source: patient Mode of arrival: Wheelchair Limitations: No Limitations - History of Present Illness Initial comments: Patient is 56 years old female with history of hypertension, diabetes and and anxiety. Patient brought to the emergency room via EMS from home for evaluation of fall that happened last night. Patient stated that she came from work last night and she went to bed. She stated that she woke up this morning and found that she have abrasion to the left forehead. Patient stated that she does not remember what happened last night. Patient stated that she takes Seroquel and trazodone at night. Patient currently denying any headache. Patient found to have a blood pressure of 70/40. Patient received 1 L of normal saline by EMS. Patient denied any fever or chills. No nausea or vomiting. Patient is complaining of generalized weakness. Patient is also complaining of left lower chest pain, increased with respiration. Patient stated that she is tender on the left side. Patient is ambulating well in the ER with no difficulties. - Related Data Home Medications Medication Instructions Recorded Confirmed Last Taken Glimepiride [Amaryl] 8 mg PO QAM 06/24/13 11/08/18 04/02/15 Sitagliptin Phos/Metformin HCl 1 each PO DAILY 06/24/13 11/08/18 04/02/15 [Janumet 50-1,000 mg] carvediloL [Coreg] 25 mg PO DAILY 06/24/13 11/08/18 04/02/15 Losartan/Hydrochlorothiazide 1 each PO DAILY 04/02/15 11/08/18 Unknown [Hyzaar 50-12.5 TAB] Previous Rx's Medication Instructions Recorded Last Taken Type Acetaminophen/Codeine [Tylenol 1 tab PO Q6H PRN #5 tab 04/01/15 04/02/15 Rx /Codeine # 3 tab] Famotidine [Pepcid] 20 mg PO BID 5 Days tablet 11/09/18 Unknown Rx Insulin Glargine,Hum.rec.anlog 45 units SQ QHS #1 vial 11/09/18 Unknown Rx [Lantus] diphenhydrAMINE [Benadryl CAP] 25 mg PO Q8HR #10 capsule 11/09/18 Unknown Rx predniSONE [Deltasone] 20 mg PO QDAY 5 Days tab 11/09/18 Unknown Rx Dicyclomine [Bentyl] 10 mg PO QID PRN #12 capsule 09/21/19 Unknown Rx Ondansetron [Zofran Odt] 4 mg PO Q8HR PRN #20 tab.rapdis 12/23/19 Unknown Rx Promethazine [Phenergan TAB] 25 mg PO Q6HR PRN #20 tab 12/23/19 Unknown Rx Nitrofurantoin [place]/M-Cryst 100 mg PO Q12HR #14 capsule 08/05/20 Unknown Rx [Macrobid CAP] Ondansetron [Zofran ODT TAB] 4 mg PO Q6H #7 tab.rapdis 08/05/20 Unknown Rx traMADoL [Ultram] 50 mg PO Q6HR PRN #14 tablet 08/05/20 Unknown Rx Allergies Allergy/AdvReac Type Severity Reaction Status Date / Time Penicillins Allergy Rash Verified 08/05/20 07:26 ED Review of Systems ROS: Stated complaint: GROUND LEVEL FALL/HYPERGLYCEMIA Other details as noted in HPI Comment: All other systems reviewed and negative Constitutional: denies: chills, fever Respiratory: denies: cough, shortness of breath, SOB with exertion, SOB at rest Cardiovascular: chest pain Gastrointestinal: denies: abdominal pain, nausea, vomiting Musculoskeletal: denies: back pain Neurological: denies: headache, weakness, numbness, paresthesias, confusion, abnormal gait ED Past Medical Hx - Past Medical History Previous Medical History?: Yes Hx Hypertension: Yes Hx Diabetes: Yes Additional medical history: cdiff - Surgical History Additional Surgical History: hysterectomy - Social History Smoking Status: Never Smoker Substance Use Type: None - Medications Home Medications: Home Medications Medication Instructions Recorded Confirmed Last Taken Type Glimepiride [Amaryl] 8 mg PO QAM 06/24/13 11/08/18 04/02/15 History Sitagliptin Phos/Metformin HCl 1 each PO DAILY 06/24/13 11/08/18 04/02/15 History [Janumet 50-1,000 mg] carvediloL [Coreg] 25 mg PO DAILY 06/24/13 11/08/18 04/02/15 History Acetaminophen/Codeine [Tylenol 1 tab PO Q6H PRN #5 tab 04/01/15 11/08/1804/02/15 Rx /Codeine # 3 tab] Losartan/Hydrochlorothiazide 1 each PO DAILY 04/02/15 11/08/18 Unknown History [Hyzaar 50-12.5 TAB] Famotidine [Pepcid] 20 mg PO BID 5 Days tablet 11/09/18 Unknown Rx Insulin Glargine,Hum.rec.anlog 45 units SQ QHS #1 vial 11/09/18 Unknown Rx [Lantus] diphenhydrAMINE [Benadryl CAP] 25 mg PO Q8HR #10 capsule 11/09/18 Unknown Rx predniSONE [Deltasone] 20 mg PO QDAY 5 Days tab 11/09/18 Unknown Rx Dicyclomine [Bentyl] 10 mg PO QID PRN #12 capsule 09/21/19 Unknown Rx Ondansetron [Zofran Odt] 4 mg PO Q8HR PRN #20 tab.rapdis 12/23/19 Unknown Rx Promethazine [Phenergan TAB] 25 mg PO Q6HR PRN #20 tab 12/23/19 Unknown Rx Nitrofurantoin [place]/M-Cryst 100 mg PO Q12HR #14 capsule 08/05/20 Unknown Rx [Macrobid CAP] Ondansetron [Zofran ODT TAB] 4 mg PO Q6H #7 tab.rapdis 08/05/20 Unknown Rx traMADoL [Ultram] 50 mg PO Q6HR PRN #14 tablet 08/05/20 Unknown Rx ED Physical Exam - General Limitations: No Limitations General appearance: alert, in no apparent distress - Head Head exam: Present: atraumatic, normocephalic, normal inspection - ENT ENT exam: Present: mucous membranes dry - Respiratory Respiratory exam: Present: chest wall tenderness. Absent: respiratory distress, wheezes, rales, rhonchi - Cardiovascular Cardiovascular Exam: Present: regular rate, normal rhythm, normal heart sounds - GI/Abdominal GI/Abdominal exam: Present: soft, normal bowel sounds. Absent: distended, t enderness, guarding, rebound, rigid, organomegaly, mass, bruit, pulsatile mass, hernia - Extremities Exam Extremities exam: Present: normal inspection, full ROM, normal capillary refill. Absent: tenderness, pedal edema, joint swelling, calf tenderness - Back Exam Back exam: Present: normal inspection, full ROM. Absent: CVA tenderness (R), CVA tenderness (L) - Neurological Exam Neurological exam: Present: alert, oriented X3, CN II-XII intact, normal gait, reflexes normal. Absent: motor sensory deficit - Psychiatric Psychiatric exam: Present: normal mood - Skin Skin exam: Present: warm, intact, normal color ED Course Vital Signs 07/05/21 07/05/21 07/05/21 08:07 08:23 08:30 Temperature Pulse Rate 88 94 H 82 Respiratory 16 23 27 H Rate Blood Pressure 67/36 Blood Pressure 70/41 [Right] O2 Sat by Pulse 98 100 Oximetry 07/05/21 08:39 Temperature 97.5 F L Pulse Rate Respiratory Rate Blood Pressure Blood Pressure [Right] O2 Sat by Pulse 98 Oximetry ED Medical Decision Making - Lab Data Result diagrams: 07/05/21 08:24 07/05/21 08:24 - EKG Data -: EKG Interpreted by Ca EKG shows normal: sinus rhythm Rate: normal - EKG Data Interpretation: no acute changes - Radiology Data Radiology results: report reviewed - Medical Decision Making Patient is 56 years old female with history of hypertension, diabetes and and anxiety. Patient brought to the emergency room via EMS from home for evaluation of fall that happened last night. Patient stated that she came from work last night and she went to bed. She stated that she woke up this morning and found that she have abrasion to the left forehead. Patient stated that she does not remember what happened last night. Patient stated that she takes Seroquel and trazodone at night. Patient currently denying any headache. Patient found to have a blood pressure of 70/40. Patient received 1 L of normal saline by EMS. Patient denied any fever or chills. No nausea or vomiting. Patient is complaining of generalized weakness. Patient is also complaining of left lower chest pain, increased with respiration. Patient stated that she is tender on the left side. Patient is ambulating well in the ER with no difficulties. Patient remained stable in the ER with improving blood pressure is currently 90/50. Patient received another 2 L of normal saline in the ER. GCS remained in 15. CT brain showed a left frontal subdural hematoma with a small subarachnoid hemorrhage. Chest x-ray showed a left rib fracture but there is no pneumothorax. I discussed the patient with [facility] and patient has been accepted by Dr. Jade. Critical Care Time: Yes Critical care time in (mins) excluding proc time.: 30 Critical care attestation.: If time is entered above; I have spent that time in minutes in the direct care of this critically ill patient, excluding procedure time. ED Disposition Clinical Impression: Acute subdural hematoma, Subarachnoid hemorrhage following injury, Left rib fracture, Syncope, Fall with injury Disposition: [facility] Is pt being admited?: No Condition: Stable Instructions: Syncope (ED)
[2021-07-05 08:57] LABS: Basophils # (Auto) 0.1 K/mm3 (0.0-0.1); Basophils % (Auto) 0.9 % (0.0-1.8); Eosinophils # (Auto) 0.2 K/mm3 (0.0-0.4); Hemoglobin 11.9 gm/dl (10.1-14.3); Lymphocytes # (Auto) 1.8 K/mm3 (1.2-5.4); Lymphocytes % (Auto) 15.9 % (13.4-35.0); Mean Corpuscular HGB Conc 35 % (30-34); Mean Corpuscular Volume 92 fl (79-97); Monocytes # (Auto) 0.5 K/mm3 (0.0-0.8); Monocytes % (Auto) 4.3 % (0.0-7.3); Platelet Count 219 K/mm3 (140-440); Red Cell Distribution Width 13.4 % (13.2-15.2)
[2021-07-05 09:15] LABS: Calcium 8.8 mg/dL (8.4-10.2)
[2021-07-05 09:18] LABS: Albumin 3.7 g/dL (3.9-5)
--- NOTE | 2021-07-05 09:33 | Cat Scan Report ---
CT head/brain wo con INDICATION: Fall. TECHNIQUE: Routine CT head. All CT scans at this location are performed using CT dose reduction for A COBY by means of automated exposure control. COMPARISON: None. FINDINGS: Intracranial: Thin 2 mm left frontal subdural hematoma (image 9 of series 2). Small volume of associa edwin subarachnoid hemorrhage in the underlying left frontal sulci(image 13 of series 2). Li-white ma tter differentiation is maintained. No hydrocephalus. No herniation. Sinuses: Paranasal sinuses and mastoid air cells are essentially clear. Orbits: Globes are intact. Calvarium: No acute fracture. IMPRESSION: 1. Thin acute left frontal subdural hematoma with small volume of subarachnoid hemorrhage. I informed Dr Arellano who is taking care of this patient via telephone at 8:20. Signer Name: Flavio Okeefe MD Signed: 07/05/2021 9:28 AM Workstation Name: [id number]
[2021-07-05] MEDS ORDERED: INSULIN REGULAR, HUMAN 100 UNITS/1 ML IV ONE (09:46)
--- NOTE | 2021-07-05 09:46 | XRay Report ---
LEFT RIBS 4 VIEWS INDICATION: Fall/PAIN. COMPARISON: None. IMPRESSION: No displaced left rib deformity is detected on x-ray. The left lung is well-aerated. Signer Name: Tyson Vasquez Jr, MD Signed: 07/05/2021 9:41 AM Workstation Name: [id number]
[2021-07-05 10:18] LABS: Bilirubin,Direct < 0.2 mg/dL (0-0.2)
[2021-07-05 10:51] VITALS: BP 83/49
[2021-07-05 11:01] LABS: Alanine Aminotransferase < 5 units/L (7-56)
--- NOTE | 2021-07-12 13:56 | Electrocardiograph Report ---
[facility] Test Date: 2021-07-05 Test Time: 08:33:47 Pat Name: CLARI FRANCIS Department: Room: Gender: F Research Development Manager: NURSE : 1965 Requested By: [place] Order Number: [id number] Reading MD: Simon Talamantes Measurements Intervals [place] Rate: 82 P: 47 FL: 174 QRS: 56 QRSD: 99 T: 39 QT: 410 QTc: 479 Interpretive Statements Sinus rhythm No previous ECG available for comparison Electronically Signed On 07-12-2021 13:55:52 EDT by Simon Talamantes
== END 2021-07-05 11:02 ==
LOC: ED 07:56
DX: S06.5X9A Traumatic subdural hemorrhage with loss of consciousness of unspecified duration, initial encounter (principal); S06.6X9A Traumatic subarachnoid hemorrhage with loss of consciousness of unspecified duration, initial encounter; S22.32XA Fracture of one rib, left side, initial encounter for closed fracture; R55 Syncope and collapse; I10 Essential (primary) hypertension; E11.8 Type 2 diabetes mellitus with unspecified complications; Z90.710 Acquired absence of both cervix and uterus; Z88.0 Allergy status to penicillin; W19.XXXA Unspecified fall, initial encounter; Y93.89 Activity, other specified; Y92.89 Other specified places as the place of occurrence of the external cause; Y99.8 Other external cause status
CPT/HCPCS: 36415; 70450; 71100; 80048; 80076; 82140; 82962; 85025; 93005; 96361; 96374; 99291; J7030; 80320; G0480; J1815